=== PATIENT | male | born 1950 | race Caucasian/White ===

== ENCOUNTER 2019-10-02 07:46 | Outpatient (RCR) | payer MEDICARE, SELFPAY ==
--- NOTE | 2019-10-02 08:35 | PTOPEVAL ---
Thank you for referring this patient to [facility]. Please review, sign, date and return this plan of care RIVERA. I agree with and certify that the following plan of care is medically necessary. Referring Physician Date Admitting Provider: Attending Provider: PHYSICIAN NOT ON STAFF Referring Provider: *PT Outpatient Evaluation Start: 10/02/19 08:17 Freq: Status: Active Protocol: Document 10/02/19 08:17 MOLLY (Rec: 10/02/19 08:35 MOLLY [id number]) Therapy Assessment Status Assessment Status Assessment Status Evaluation Evaluation Information Problem Diagnosis right reverse TSA Onset 09/13/19 Subjective Information Pt. underwent revererse TSA on Query Text:As Reported By Patient/ 09/13/19. He states that he Family was utilizing a sling, but was told to discontinue. He was using the arm for light activities around the home. He has been informed to avoid reaching behind his back. 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 He reports that his goal is to regain strength and mobiltiy in the right arm . Prior Level of Function Activity Level (Last 3 Months) Hand Dominance Right Activity of Daily Living Ability Independent Indoor/Home Mobility Independent Community Mobility Independent Stairs Ability Independent Functional Cognition (Planning, Shopping Independent , Taking Medications) Cooking Yes Cleaning No Laundry No Shopping Yes Driving No Pain Assessment Timing of Pain Assessment Timing of Pain Assessment Pre-Treatment Pain Scale Pain Scale Used Numeric (1 - 10) Self Report Pain Assessment Right Shoulder(s) Reported Pain Level 8 Current Pain Intensity 8 Greatest Pain Intensity 9 Pain Score Pain Score 8: Self Report Upper Extremity Range of Motion General Upper Extremity Range of Motion Gross Upper Extremity Range of Motion PROM at the right shoulder: Comments flexion: 120 degrees ER at 0 degrees abduction: 60 degrees IR: not assessed PT Clinical Summary Clinical Summary Protocol: PTEVCODE Clinical Summary Pt. enters the clinci
--- NOTE | 2019-10-02 09:00 | PTOPEVAL ---
Thank you for referring this patient to [facility]– [place]. Please review, sign, date and return this plan of care RIVERA. I agree with and certify that the following plan of care is medically necessary. Referring Physician Date Admitting Provider: Attending Provider: PHYSICIAN NOT ON STAFF Referring Provider: *PT Outpatient Evaluation Start: 10/02/19 08:17 Freq: Status: Active Protocol: Document 10/02/19 08:17 MOLLY (Rec: 10/02/19 08:35 MOLLY [email or web address]) Therapy Assessment Status Assessment Status Assessment Status Evaluation Evaluation Information Problem Diagnosis right reverse TSA Onset 09/13/19 Subjective Information Pt. underwent revererse TSA on Query Text:As Reported By Patient/ 09/13/19. He states that he Family was utilizing a sling, but was told to discontinue. He was using the arm for light activities around the home. He has been informed to avoid reaching behind his back. 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 He reports that his goal is to regain strength and mobiltiy in the right arm . Prior Level of Function Activity Level (Last 3 Months) Hand Dominance Right Activity of Daily Living Ability Independent Indoor/Home Mobility Independent Community Mobility Independent Stairs Ability Independent Functional Cognition (Planning, Shopping Independent , Taking Medications) Cooking Yes Cleaning No Laundry No Shopping Yes Driving No Pain Assessment Timing of Pain Assessment Timing of Pain Assessment Pre-Treatment Pain Scale Pain Scale Used Numeric (1 - 10) Self Report Pain Assessment Right Shoulder(s) Reported Pain Level 8 Current Pain Intensity 8 Greatest Pain Intensity 9 Pain Score Pain Score 8: Self Report Upper Extremity Range of Motion General Upper Extremity Range of Motion Gross Upper Extremity Range of Motion PROM at the right shoulder: Comments flexion: 120 degrees ER at 0 degrees abduction: 30 degrees IR: not assessed PT Clinical Summary Clinical Summary Protocol: PTEVCODE Clinical Summary Pt. enters the clinci
--- NOTE | 2019-11-08 10:08 | PTOPEVAL ---
Thank you for referring this patient to [facility]. Please review, sign, date and return this plan of care RIVERA. I agree with and certify that the following plan of care is medically necessary. Referring Physician Date Admitting Provider: Attending Provider: PHYSICIAN NOT ON STAFF Referring Provider: *PT Outpatient Evaluation Start: 10/02/19 08:17 Freq: Status: Active Protocol: Document 11/08/19 09:00 MOLLY (Rec: 11/08/19 10:07 MOLLY [email or web address]) Therapy Assessment Status Assessment Status Assessment Status Re-evaluation Evaluation Information Problem Subjective Information Pt. reports that he has Query Text:As Reported By Patient/ discontinued use of pain Family medication. He reports that he is improving but overhead strength is still limited. He reports that he has trouble lifting objects overhead. He reports that his goal remains to further improve his strength. Pain Assessment Pain Scale Pain Scale Used Numeric (1 - 10) Self Report Pain Assessment Right Shoulder(s) Reported Pain Level 2 Pain Score Pain Score 2: Self Report Upper Extremity Range of Motion General Upper Extremity Range of Motion Gross Upper Extremity Range of Motion right shoulder flexion AROM Comments against gravity 128 degrees, right shoudler ER AROM against gravity 79 degrees Upper Extremity Muscle Strength Testing General Upper Extremity Strength Gross Upper Extremity Strength Comments right shoulder flexion 3+/5, right shoulder ER 3/5, right shoulder IR 4/5 PT Clinical Summary Clinical Summary Protocol: PTEVCODE Clinical Summary Pt. continues to demonstrate gradual progress in regards to strength and ROM. He demonstrates improved movement against gravity. He continues to progress toward goals regarding strength and mobility. Recommend continued treatment at a decreased frequency focusing on improving remaining strength deficits. PT Services Indicated Yes Rehabilitation Potential Excellent Potential Barriers to Goal Achievements None Support Requirements For Optimal None [place] Patient/Caregiver
== END 2019-12-04 10:59 | disposition home or self-care (01) ==
LOC: CHSPT 07:46
DX: Z09 Encounter for follow-up examination after completed treatment for conditions other than malignant neoplasm (principal); S46.011S Strain of muscle(s) and tendon(s) of the rotator cuff of right shoulder, sequela
CPT/HCPCS: 97014; 97110; 97140; 97161; G0283

== ENCOUNTER 2019-12-05 14:01 | Emergency (ER) | payer MEDICARE, SELFPAY ==
[2019-12-05 14:18] VITALS: BP 171/100; PULSE 125; RESP 20; TEMP 36.8; O2SAT 99
[2019-12-05] MEDS: LIDO 1%/EPINEPHRINE 1:100,000 20 ML VIAL (14:25)
--- NOTE | 2019-12-05 15:06 | ED.WOUNDLAC ---
HPI - Wound/Laceration General Chief Complaint: Wound/Laceration Stated Complaint: cut lower part of left arm Source: patient Mode of arrival: ambulatory Limitations: no limitations History of Present Illness HPI narrative: 69 y.o. lacerated his left forearm 90 minutes ago after getting it caught on the throttle of his tiller. Last tetanus 4 years ago. Denies chronic illnesses. Drinks several drinks every evening for years. Pain is mild. Denies hx of hypertension Place: outdoors and other Context: accidental Associated symptoms: none Related Data Home Medications Medication Instructions Recorded Confirmed No Home Medications 12/05/19 12/05/19 Allergies Allergy/AdvReac Type Severity Reaction Status Date / Time No Known Allergies Allergy Verified 12/05/19 14:17 Review of Systems Constitutional: Constitutional: Reports no additional constitutional complaints Musculoskeletal: Comments: no left hand/wrist weakness Neurologic: Comments: no left hand/forearm numbness PMFSH Social History Social History (Updated 12/05/19 @ 15:16 by Twan Meza MD) Smoking status: Current every day smoker Exam Narrative: Exam Narrative: 171/100 Const: General: no acute distress Orientation/consciousness: patient oriented x3 Other: Interactive Skin: Wounds: wounds noted Other: 8 cm v shaped laceration left mid-forearm. Laceration does not extend beyond the skin. Underlying blood vessels and epimysium are intact. Neuro: General: moves all extremities Course Vital Signs Vital signs: Vital Signs Temperature 36.8 C 12/05/19 14:18 Pulse Rate 125 H 12/05/19 14:18 Respiratory Rate 20 12/05/19 14:18 Blood Pressure 171/100 H 12/05/19 14:18 Pulse Oximetry 99 12/05/19 14:18 Temperature 36.8 C 12/05/19 14:18 Pulse Rate 125 H 12/05/19 14:18 Respiratory Rate 20 12/05/19 14:18 Blood Pressure 171/100 H 12/05/19 14:18 Pulse Oximetry 99 12/05/19 14:18 Procedures Laceration Laceration 1: Date: 12/05/19 Time: 15:18 Site: upper extremity Side (If applicable): left Size (cm): 8 Description: flap Depth: simple, single layer Local Anesthetic: lidocaine 1% and with epi Amount of anesthesia used (mL): 4 Pre-repair: wound explored and irrigated (50 ml through 21 g needle.) ====== Skin Level ====== Skin layer closed with: nylon Size (cm): 4-0 Number of sutures: 10 Technique: simple, interrupted and running ====== Subcutaneous Layer ====== ====== Muscle Layer ====== ====== Tendon Layer ====== Dressing: non-adherent dressing, gauze wrap MDM - Wound/Laceration Differential Diagnosis Differential diagnosis: Likely laceration and other (lac with foreign body) Discharge Plan Discharge Clinical Impression: Laceration, Blood pressure elevated without history of HTN Patient Disposition: Home, Self-Care Condition: Stable Instructions: Antibiotic Form, Care For Your Stitches (ED), Hypertension (ED) Additional Instructions: Suture removal in 7 days. Wound care reviewed. Follow up for blood pressure monitoring. Prescriptions: No Action No Home Medications RF: 0 Follow-up/Referrals: Otto Salvador MD [Primary Care Provider] - Time of Disposition: 15:07 Discharge Date/Time: 12/05/19 15:20
[2019-12-05 15:15] VITALS: BP 146/89; PULSE 77; RESP 14; O2SAT 99
== END 2019-12-05 15:20 | disposition home or self-care (01) ==
PROVIDERS: Emergency Provider Family Medicine; PCP Internal Medicine
DX: S51.812A Laceration without foreign body of left forearm, initial encounter (principal); R03.0 Elevated blood-pressure reading, without diagnosis of hypertension; F17.200 Nicotine dependence, unspecified, uncomplicated; W45.8XXA Other foreign body or object entering through skin, initial encounter
CPT/HCPCS: 12004; 99282

== ENCOUNTER 2019-12-06 10:50 | Outpatient (RCR) | payer MEDICARE, SELFPAY ==
[2019-12-06 11:48] LABS: Prostate Specific Antigen 0.3 ng/mL (< OR = 4.0)
== END 2020-03-05 23:59 | disposition home or self-care (01) ==
LOC: CHSLAB 10:50
PROVIDERS: PCP Internal Medicine; Visit Provider Internal Medicine
DX: C61 Malignant neoplasm of prostate (principal)
CPT/HCPCS: 36415; 84153

== ENCOUNTER 2021-07-16 16:01 | Outpatient (CLI) | payer MEDICARE, SELFPAY ==
[2021-07-16 16:54] LABS: SARS-CoV-2 RNA PCR Negative (Negative)
[2021-07-16 17:00] LABS: Influenza A QL RT-PCR Negative (Negative); Influenza B QL RT-PCR Negative (Negative)
== END 2021-07-16 16:02 | disposition home or self-care (01) ==
LOC: CHSLAB 16:03
PROVIDERS: PCP Internal Medicine; Visit Provider Internal Medicine
DX: J06.9 Acute upper respiratory infection, unspecified (principal); Z20.822 Contact with and (suspected) exposure to COVID-19
CPT/HCPCS: 87502; C9803; U0003; U0005

== ENCOUNTER 2022-06-20 03:51 | Emergency (ER) | payer MEDICARE, SELFPAY ==
--- NOTE | ~2022-06-20 | CT_ITS ---
EXAMINATION: CT facial bones wo con DATE: 06/20/2022 05:17 INDICATION: Bilateral epistaxis TECHNIQUE: Computed tomography (CT) of the facial bones and maxillofacial region was performed withou t intravenous contrast. The dose-length product (DLP) was 287.87 mGy-cm. Automated exposure control a nd iterative reconstruction technique were employed. COMPARISON: None. FINDINGS: There are diffuse hemorrhagic opacification of the paranasal sinuses. The visualized osseou s structures are normal. No mass is identified. There is no facial fracture. The orbits and globes ar e normal. IMPRESSION: 1. Hemorrhagic sinus opacification, consistent with history of hypostatic axis, without acute facial fracture identified. Reviewed, dictated and finalized at location A.
--- NOTE | ~2022-06-20 | CT_ITS ---
EXAMINATION: CT brain wo con INDICATION: Epistaxis COMPARISON: None TECHNIQUE: Standard unenhanced head CT. The dose-length product (DLP) was 681.00 mGy-cm. The mA was a djusted according to patient size. Iterative reconstruction technique was employed. FINDINGS: There is no acute intraparenchymal hemorrhage. No evidence of mass lesion. No evidence of a cute infarction. There is mild periventricular and subcortical hypodensity probably related to small vessel ischemic disease. There is mild prominence of the sulci and ventricles related to cerebral atr ophy. Intracranial calcified cerebral atherosclerosis is noted. There are no extra-axial collections. There is no mass effect or midline shift. The orbits and soft tissues are unremarkable. There is hem orrhagic opacification in the right maxillary sinus. The nasal cavity is nearly completely opacified. There are air-fluid levels in the sphenoid sinuses, left maxillary sinus and frontal sinuses. IMPRESSION: 1. No acute intracranial abnormality. 2. Age related findings. 3. Hemorrhagic sinus opacification, consistent with history of epistaxis. Reviewed, dictated and finalized at location A.
[2022-06-20 03:58] VITALS: BP 157/87; PULSE 80; RESP 20; TEMP 36.6; O2SAT 95
[2022-06-20 04:36] LABS: Hematocrit 38.6 % (37.0-46.0); Hemoglobin 12.9 g/dL (12.4-15.3)
[2022-06-20 04:49] LABS: INR 0.9; Partial Thromboplastin Time 26.9 SEC (23.90-30.70); Prothrombin Time 10.4 Seconds (9.50-12.10)
[2022-06-20] MEDS: LACTATED RINGERS 1,000 ML 999 ML IV CONT (04:50)
--- NOTE | 2022-06-20 05:07 | ED.EPISTAXIS ---
HPI - Epistaxis General Chief complaint: Epistaxis Stated complaint: Nose bleed Time Seen by Provider: 06/20/22 03:55 Source: patient and RN notes reviewed Mode of arrival: ambulatory Limitations: no limitations History of Present Illness complaint: epistaxis Location: bilateral nostril Onset (ago): hour(s) (36) Duration: constant Associated symptoms: headache and sinus pain Treatment prior to arrival: nose pinching and stuffed nose with tissue Related Data Allergies Allergy/AdvReac Type Severity Reaction Status Date / Time No Known Allergies Allergy Verified 01/02/20 07:04 Review of Systems Review of Systems: All systems reviewed & are unremarkable except as noted in HPI and below Constitutional: Constitutional: Reports no additional constitutional complaints Eyes: Eyes: Reports no additional eye complaints ENT: Reports system reviewed and no additional complaints, except as documented and Reports epistaxis Cardiovascular: Cardiovascular: Reports no additional cardiovascular complaints Respiratory: Respiratory: Reports no additional respiratory complaints Gastrointestinal: Gastrointestinal: Reports no additional gastrointestinal complaints Musculoskeletal: Musculoskeletal: Reports no additional musculoskeletal complaints Integumentary/Breasts: Skin/Breast: Reports system reviewed and no additional complaints, except as docu Neurologic: Reports system reviewed and no additional complaints, except as documented Psychiatric: Psychiatric: Reports no additional psychiatric complaints Endocrine: Endocrine: Reports no additional endocrine complaints Hematologic/Lymphatic: Hematologic/Lymphatic: Reports no additional hematologic/lymphatic complaints Allergic/Immunologic: Allergic/Immunologic: Reports no additional allergic/immunologic complaints PMFSH Past Medical History Medical History Epistaxis Social History Social History Smoking status: Current every day smoker Exam Const: General: healthy appearing, no acute distress and well nourished Nutritional Appearance: well nourished Orientation/consciousness: patient oriented x3 Limitations: no limitations HENMT: Head: normal to inspection Ears: external ears normal, TM's normal bilaterally and EAC's normal Face/Nose/Sinus: Normal external nose present, Normal nares present, normal facial exam and sinuses nontender Face and sinus: normal facial exam and sinuses nontender Mouth: Yes Normal oral and palatal mucosa present and Yes moist mucous membranes Teeth and gingiva: dentition normal Throat: posterior oropharynx normal Other: bilateral epistaxis + blood oozing into oropharynx + bilateral earache. minimal left tear duct bleeding (post nasal packing) Eyes: Conjunctivae: conjunctivae normal Pupils: Equal, round and reactive pupils present EOM: EOMs intact bilaterally Neck: Neck: normal visual inspection, no lymphadenopathy and no meningeal signs Chest: Chest palpation & inspection: normal inspection of the chest Resp: Effort & Inspection: normal respiratory effort Auscultation: clear to auscultation bilaterally Cardio: Rate: regular rate Rhythm: regular rhythm GI: GI Palp: Yes Soft to palpation and No Tenderness to palpation present (GI) Auscultation: normal bowel sounds : General: Yes bladder normal to palpation and Yes no CVA tenderness Back/Spine/Pelvis: Back: no CVA tenderness Skin: General skin exam: normal color Rashes: no rashes Wounds: no wounds Neuro: General: patient oriented x3, moves all extremities, no meningeal signs, no focal motor deficits and CN's II-XI intact bilaterally Cranial nerves: Yes Equal, round and reactive pupils present and Yes Nystagmus not present Speech: normal speech Gait exam (Neuro): Normal gait present Extrem: General: normal to inspection and no pedal edema Psych: Mental Stat
[2022-06-20] MEDS: ONDANSETRON HCL ODT 4 MG TABLET PO (05:15)
[2022-06-20 05:56] VITALS: BP 140/90; PULSE 78; RESP 18; TEMP 36.6; O2SAT 95
[2022-06-20] MEDS: MORPHINE SULFATE (*CRX) 4 MG/ML INJ IM (05:58)
[2022-06-20] MEDS: cefTRIAXone 1 GM, LIDOCAINE HCL 1% LOCAL INJ 2.1 ML IM (06:14)
== END 2022-06-20 06:15 | disposition home or self-care (01) ==
PROVIDERS: Emergency Provider Emergency Medicine; PCP Internal Medicine
DX: R04.0 Epistaxis (principal); J01.90 Acute sinusitis, unspecified; F17.200 Nicotine dependence, unspecified, uncomplicated
CPT/HCPCS: 36415; 70450; 70486; 85014; 85018; 85610; 85730; 96360; 96372; 99284; A9270; J0696; J2270; J7120

== ENCOUNTER 2022-06-20 20:50 | Emergency (ER) | payer MEDICARE, SELFPAY ==
[2022-06-20] VITALS (21 sets, daily range): BP systolic 130–173; BP diastolic 81–114; PULSE 70–113; RESP 18–22; TEMP 36.5–36.6; O2SAT 94–99
--- NOTE | 2022-06-20 21:23 | PC.NURSE ---
Bilat epistats removed by ERP, Replaced epistat to Rt nostril, bleeding continues, pt c/o blood down back of his throat, bleeding still noted around epistat that is replaced. VSS at this time.
--- NOTE | 2022-06-20 21:35 | ED.GENADULT ---
HPI - General Adult General Chief complaint: Epistaxis Stated complaint: nosebleed;coughing up blood Time Seen by Provider: 06/20/22 20:57 History of Present Illness HPI narrative: The patient is a 72-year-old male who had epistaxis at 4 am this morning. He was seen here in the emergency room and underwent bilateral anterior nasal packing with balloons. His blood pressure at that time was a bit elevated, 157/87. He is not on antiplatelet or anticoagulant therapies. He has not had episodes of epistaxis previously. He was prescribed Amoxicillin, Mucinex, Tramadol, and Tylenol. He was discharged home with follow-up. He now returns to the emergency room this evening due to a recurrent period of epistaxis that started around 8 pm. He does have blood in the tears of his left eye (hemolacria). He feels the bleeding in the right nares has re-started again. No trauma or blowing of his nose since this morning. Related Data Allergies Allergy/AdvReac Type Severity Reaction Status Date / Time No Known Allergies Allergy Verified 01/02/20 07:04 Review of Systems Review of Systems: All systems reviewed & are unremarkable except as noted in HPI and below Constitutional: Constitutional: Reports no additional constitutional complaints, Denies anorexia, Denies body ache(s), Denies chills, Denies excessive sweating, Denies fatigue, Denies fever(s), Denies frequent falls, Denies headache(s), Denies malaise and Denies poor appetite Eyes: Eyes: Reports no additional eye complaints, Denies blurry vision, Denies change in vision (blood in left eye tears, as noted above.), Denies irritation, Denies itchy eyes and Denies photophobia ENT: Reports system reviewed and no additional complaints, except as documented, Reports Normal hearing present, Denies change in voice, Denies dysphagia, Denies vertigo, Denies dizziness, Denies ear discharge, Denies headache(s), Denies hearing loss, Denies hoarseness, Reports epistaxis, Denies nasal congestion, Denies neck pain, Denies sinus pressure, Denies sore throat and Denies throat swelling Cardiovascular: Cardiovascular: Reports no additional cardiovascular complaints, Denies chest pain, Denies syncope, Denies rapid heart rate, Denies irregular heart rhythm, Denies leg edema, Denies dyspnea and Denies slow heart rate Respiratory: Respiratory: Reports no additional respiratory complaints, Denies cough, Denies dyspnea, Denies stridor and Denies wheezing Gastrointestinal: Gastrointestinal: Reports no additional gastrointestinal complaints, Denies abdominal pain, Denies melena, Denies hematochezia, Denies dysphagia, Denies diarrhea, Denies nausea and Denies vomiting Genitourinary: Genitourinary: Denies hematuria, Denies oliguria, Denies dysuria, Denies flank pain, Denies urinary frequency and Denies urinary urgency Musculoskeletal: Musculoskeletal: Reports no additional musculoskeletal complaints, Denies abnormal gait, Denies back pain, Denies myalgias, Denies arthralgias, Denies joint swelling, Denies limited range of motion, Denies muscle cramps, Denies muscle weakness, Denies neck pain and Denies numbness Integumentary/Breasts: Skin/Breast: Reports system reviewed and no additional complaints, except as docu, Denies breast pain, Denies change in pigmentation, Denies pruritus, Denies erythema and Denies wounds Neurologic: Reports system reviewed and no additional complaints, except as documented, Reports Normal hearing present, Denies Abnormal speech present, Denies abnormal gait, Denies confusion, Denies vertigo, Denies dizziness, Denies syncope, Denies frequent falls, Denies headache(s), Denies focal weakness, Denies numbness and Denies paresthesias Psychiatric: Psychiatric: Reports no additional psychiatric complaints and Denies confusion Endocrine: Endocrine: Reports no additional endocrine complaints, Denies cold intolerance, Denies excessive sweating, Denies fatigue and Denies heat intolerance Hematologic/Lymphatic: Hematologi
[2022-06-20] MEDS: LABETALOL HCL INJ 100 MG/20 ML VIAL 20 MG IV PUSH (21:37)
[2022-06-20] MEDS: hydrALAZINE HCL 20 MG/ML VIAL IV PUSH (22:06)
[2022-06-20 22:16] LABS: Basophils Absolute Auto 0.01 K/mm3 (0.00-0.10); Basophils Percent Auto 0.1 % (0.0-1.0); Hematocrit 30.1 % (37.0-46.0); Hemoglobin 10.3 g/dL (12.4-15.3); Immature Granulocyte Absolute 0.03 K/mm3 (0.00-0.00); Immature Granulocyte Percent A 0.4 % (0.0-0.0); Lymphocytes Absolute Auto 0.65 K/mm3 (1.10-4.50); Lymphocytes Percent Auto 9.7 % (18.0-42.0); Mean Corpuscular HGB Conc 34.2 g/dL (32.0-36.0); Mean Corpuscular Hemoglobin 34.1 pg (27.0-31.0); Mean Corpuscular Volume 99.7 fL (78.0-102.0); Mean Platelet Volume 8.9 fl (8.7-11.0); Monocytes Absolute Auto 0.43 K/mm3 (0.10-0.90); Monocytes Percent Auto 6.4 % (2.0-11.0); Neutrophils Absolute Auto 5.6 K/mm3 (1.7-7.2); Neutrophils Percent Auto 83.4 % (50.0-70.0); Platelet Count Result 188 K/mm3 (150-420); Red Blood Count 3.02 M/mm3 (4.70-6.10); Red Cell Distribution Width 12.6 % (11.6-14.4); White Blood Count 6.7 K/mm3 (4.8-10.8)
--- NOTE | 2022-06-20 22:17 | PC.NURSE ---
Pt continues to have bleeding down back of throat and gagging c bloody phlegm production. Awaiting call back from [facility] for ENT transfer.
[2022-06-20 22:30] LABS: Prothrombin Time 10.9 Seconds (9.50-12.10)
[2022-06-20 22:31] LABS: Alanine Aminotransferase 18 U/L (16-63); Alkaline Phosphatase 38 U/L (46-116); Anion Gap 7 mmol/L (8-16); Aspartate Amino Transferase 20 U/L (15-37); Bilirubin,Total 0.4 mg/dL (0.00-1.00); Blood Urea Nitrogen 37 mg/dL (7-18); Calcium 7.8 mg/dL (8.5-10.1); Carbon Dioxide 29 mmol/L (21-32); Chloride 99 mmol/L (98-108); Estimated CRCL calculation 68 ml/min; Estimated Glomerular Filt Rate > 60; Glucose 171 mg/dL (70-99); Osmolality Calculated 292 mOsm/kg (285-295); Potassium 3.8 mmol/L (3.5-5.1); Sodium 135 mmol/L (136-145)
[2022-06-20] MEDS: SODIUM CHLORIDE 0.9% IV 1,000 ML 999 ML IV CONT (22:50)
[2022-06-20 23:31] LABS: SARS-CoV-2 RNA PCR Negative (Negative)
[2022-06-20] MEDS: SODIUM CHLORIDE 0.9% IV 1,000 ML 125 ML IV CONT (23:50)
--- NOTE | 2022-06-21 00:09 | PC.NURSE ---
Pt loaded to GBAAS cot and report given, VSS.
== END 2022-06-21 00:10 | disposition short-term general hospital (02) ==
PROVIDERS: Emergency Provider Emergency Medicine; PCP Internal Medicine
DX: R04.0 Epistaxis (principal); I16.9 Hypertensive crisis, unspecified; E86.0 Dehydration; Z20.822 Contact with and (suspected) exposure to COVID-19
CPT/HCPCS: 36415; 70450; 70486; 80053; 85014; 85018; 85025; 85610; 85730; 96360; 96361; 96372; 96374; 96375; 99284; 99285; A9270; C9803; J0360; J0696; J2270; J7030; J7120; U0003; U0005

== ENCOUNTER 2022-07-09 10:58 | Outpatient (CLI) | payer MEDICARE, SELFPAY ==
[2022-07-09 11:19] LABS: Basophils Absolute Auto 0.04 K/mm3 (0.00-0.10); Basophils Percent Auto 0.9 % (0.0-1.0); Eosinophils Absolute Auto 0.03 K/mm3 (0.02-0.50); Eosinophils Percent Auto 0.7 % (1.0-6.0); Hematocrit 31.4 % (37.0-46.0); Hemoglobin 10.1 g/dL (12.4-15.3); Immature Granulocyte Absolute 0.02 K/mm3 (0.00-0.00); Immature Granulocyte Percent A 0.4 % (0.0-0.0); Lymphocytes Absolute Auto 1.64 K/mm3 (1.10-4.50); Lymphocytes Percent Auto 35.9 % (18.0-42.0); Mean Corpuscular HGB Conc 32.2 g/dL (32.0-36.0); Mean Corpuscular Hemoglobin 32.7 pg (27.0-31.0); Mean Corpuscular Volume 101.6 fL (78.0-102.0); Mean Platelet Volume 8.2 fl (8.7-11.0); Monocytes Percent Auto 8.8 % (2.0-11.0); Neutrophils Absolute Auto 2.4 K/mm3 (1.7-7.2); Neutrophils Percent Auto 53.3 % (50.0-70.0); Platelet Count Result 392 K/mm3 (150-420); Red Blood Count 3.09 M/mm3 (4.70-6.10); Red Cell Distribution Width 13.1 % (11.6-14.4); White Blood Count 4.6 K/mm3 (4.8-10.8)
[2022-07-09 12:28] LABS: Alanine Aminotransferase 23 U/L (16-63); Albumin Level 3.1 g/dL (3.4-5.0); Alkaline Phosphatase 57 U/L (46-116); Anion Gap 6 mmol/L (8-16); Aspartate Amino Transferase 14 U/L (15-37); Bilirubin,Total 0.2 mg/dL (0.00-1.00); Blood Urea Nitrogen 11 mg/dL (7-18); Calcium 8.3 mg/dL (8.5-10.1); Carbon Dioxide 31 mmol/L (21-32); Chloride 105 mmol/L (98-108); Estimated Glomerular Filt Rate > 60; Glucose 143 mg/dL (70-99); Osmolality Calculated 295 mOsm/kg (285-295); Potassium 5.2 mmol/L (3.5-5.1); Sodium 142 mmol/L (136-145); Total Protein 6.2 g/dL (6.4-8.2)
[2022-07-09 14:55] LABS: Hemoglobin A1C 5.6 % (<5.7)
== END 2022-07-09 10:59 | disposition home or self-care (01) ==
LOC: CHSLAB 11:04
PROVIDERS: PCP Internal Medicine; Visit Provider Internal Medicine
DX: D64.9 Anemia, unspecified (principal); R73.9 Hyperglycemia, unspecified
CPT/HCPCS: 36415; 80053; 83036; 85025

== ENCOUNTER 2023-01-21 15:22 | Outpatient (CLI) | payer MEDICARE, SELFPAY ==
[2023-01-21 15:38] LABS: Basophils Absolute Auto 0.03 K/mm3 (0.00-0.10); Basophils Percent Auto 0.5 % (0.0-1.0); Hematocrit 38.3 % (37.0-46.0); Hemoglobin 13.2 g/dL (12.4-15.3); Immature Granulocyte Absolute 0.01 K/mm3 (0.00-0.00); Immature Granulocyte Percent A 0.2 % (0.0-0.0); Lymphocytes Absolute Auto 1.21 K/mm3 (1.10-4.50); Lymphocytes Percent Auto 20.7 % (18.0-42.0); Mean Corpuscular HGB Conc 34.5 g/dL (32.0-36.0); Mean Corpuscular Hemoglobin 33.2 pg (27.0-31.0); Mean Corpuscular Volume 96.2 fL (78.0-102.0); Mean Platelet Volume 8.6 fl (8.7-11.0); Monocytes Absolute Auto 0.57 K/mm3 (0.10-0.90); Monocytes Percent Auto 9.8 % (2.0-11.0); Neutrophils Percent Auto 68.8 % (50.0-70.0); Platelet Count Result 254 K/mm3 (150-420); Red Blood Count 3.98 M/mm3 (4.70-6.10); Red Cell Distribution Width 13.5 % (11.6-14.4); White Blood Count 5.8 K/mm3 (4.8-10.8)
[2023-01-21 16:11] LABS: Alanine Aminotransferase 28 U/L (16-63); Albumin Level 3.5 g/dL (3.4-5.0); Alkaline Phosphatase 59 U/L (46-116); Anion Gap 7 mmol/L (8-16); Aspartate Amino Transferase 36 U/L (15-37); Bilirubin,Total 0.4 mg/dL (0.00-1.00); Blood Urea Nitrogen 14 mg/dL (7-18); Calcium 8.6 mg/dL (8.5-10.1); Carbon Dioxide 30 mmol/L (21-32); Chloride 104 mmol/L (98-108); Estimated Glomerular Filt Rate > 60; Glucose 104 mg/dL (70-99); Osmolality Calculated 292 mOsm/kg (285-295); Potassium 4.4 mmol/L (3.5-5.1); Sodium 141 mmol/L (136-145); Total Protein 6.7 g/dL (6.4-8.2)
== END 2023-01-21 15:23 | disposition home or self-care (01) ==
LOC: CHSLAB 15:25
PROVIDERS: PCP Internal Medicine; Visit Provider Internal Medicine
DX: L03.90 Cellulitis, unspecified (principal); D64.9 Anemia, unspecified
CPT/HCPCS: 36415; 80053; 85025

== ENCOUNTER 2023-03-20 18:02 | Emergency (ER) | payer MEDICARE, SELFPAY ==
[2023-03-20 18:03] VITALS: BP 145/74; PULSE 75; RESP 20; TEMP 37; O2SAT 98
[2023-03-20] MEDS: LIDOCAINE, EPINEPHRINE, TETRACAINE VISCOUS SOLN 3 ML TOPICAL (18:26)
[2023-03-20] MEDS: LIDOCAINE HCL 2% PF INJ 5 ML VIAL 10 ML INFILTRATE (18:26)
[2023-03-20] MEDS: NEOMYCIN/POLYMYXIN/BACITRACIN OINTMENT PACKET 1 PACKET TOPICAL (18:28)
[2023-03-20 18:52] VITALS: BP 158/79; PULSE 78; RESP 20; TEMP 37.1; O2SAT 98
--- NOTE | 2023-03-20 18:56 | ED.WOUNDLAC ---
HPI - Wound/Laceration General Chief Complaint: Wound/Laceration Stated Complaint: L HAND LACERATION Time Seen by Provider: 03/20/23 18:06 Source: patient Mode of arrival: ambulatory Limitations: no limitations History of Present Illness HPI narrative: 72-year-old male presents for left palm laceration. Said that he was changing the tire in his car and the tire blew, cutting him in the left palm. Onset (ago): hour(s) Location: other (left palm acute) Extremity Location: Left: hand Place: home Patient tetanus UTD: Yes Context: accidental Associated symptoms: pain Related Data Allergies Allergy/AdvReac Type Severity Reaction Status Date / Time No Known Allergies Allergy Verified 01/02/20 07:04 Review of Systems Constitutional: Constitutional: Reports as per HPI and Reports no additional constitutional complaints Eyes: Eyes: Reports as per HPI and Reports no additional eye complaints ENT: Reports system reviewed and no additional complaints, except as documented and Reports as per HPI Cardiovascular: Cardiovascular: Reports as per HPI and Reports no additional cardiovascular complaints Respiratory: Respiratory: Reports as per HPI and Reports no additional respiratory complaints Gastrointestinal: Gastrointestinal: Reports as per HPI and Reports no additional gastrointestinal complaints Genitourinary: Genitourinary: Reports as per HPI Musculoskeletal: Musculoskeletal: Reports no additional musculoskeletal complaints and Reports as per HPI Integumentary/Breasts: Skin/Breast: Reports system reviewed and no additional complaints, except as docu and Reports as per HPI Neurologic: Reports system reviewed and no additional complaints, except as documented and Reports as per HPI Psychiatric: Psychiatric: Reports no additional psychiatric complaints and Reports as per HPI Endocrine: Endocrine: Reports no additional endocrine complaints and Reports as per HPI Hematologic/Lymphatic: Hematologic/Lymphatic: Reports no additional hematologic/lymphatic complaints and Reports as per HPI Allergic/Immunologic: Allergic/Immunologic: Reports no additional allergic/immunologic complaints and Reports as per HPI PMFSH Past Medical History Medical History Epistaxis Social History Social History Smoking status: Current every day smoker Exam Const: General: healthy appearing, no acute distress and alert Nutritional Appearance: well nourished and thin Orientation/consciousness: patient oriented x3 Limitations: no limitations HENMT: Head: normal to inspection Face/Nose/Sinus: Normal external nose present Face and sinus: normal facial exam Eyes: Conjunctivae: conjunctivae normal EOM: EOMs intact bilaterally Resp: Effort & Inspection: normal respiratory effort Auscultation: clear to auscultation bilaterally Cardio: Rate: regular rate Rhythm: regular rhythm GI: GI Palp: Yes Soft to palpation Auscultation: normal bowel sounds Skin: General skin exam: normal color Rashes: no rashes Wounds: wounds noted (7 cm laceration in a semilunar shape in the left palm) Neuro: General: patient oriented x3 Cranial nerves: Yes Nystagmus not present Speech: normal speech Gait exam (Neuro): Normal gait present Extrem: General: normal to inspection and no clubbing, cyanosis or edema Psych: Mental Status: mental status grossly normal Affect: normal affect Attitude: cooperative Course Vital Signs Vital signs: Vital Signs Temperature 98.6 F 03/20/23 18:03 Pulse Rate 75 03/20/23 18:03 Respiratory Rate 20 03/20/23 18:03 Blood Pressure 145/74 H 03/20/23 18:03 Pulse Oximetry 98 03/20/23 18:03 Oxygen Delivery Room Air 03/20/23 18:03 Temperature 98.7 F 03/20/23 18:52 Pulse Rate 78 03/20/23 18:52 Respiratory Rate 20 03/20/23 18:52 Blood Pressure 158/79 H 03/20/23 18:52 Pulse Oximetry
== END 2023-03-20 18:57 | disposition home or self-care (01) ==
PROVIDERS: Emergency Provider Emergency Medicine; PCP Internal Medicine
DX: S61.412A Laceration without foreign body of left hand, initial encounter (principal); F17.200 Nicotine dependence, unspecified, uncomplicated; W45.8XXA Other foreign body or object entering through skin, initial encounter; Y92.009 Unspecified place in unspecified non-institutional (private) residence as the place of occurrence of the external cause
CPT/HCPCS: 12002; 99283

== ENCOUNTER 2023-07-26 12:42 | Outpatient (CLI) | payer MEDICARE, SELFPAY ==
--- NOTE | 2023-07-26 13:00 | ECG_ITS ---
Measurements Intervals [place] Rate: 82 P: 49 DC: 149 QRS: 72 QRSD: 86 T: 63 QT: 349 QTc: 408 Interpretive Statements SINUS RHYTHM VOLTAGE CRITERIA FOR LVH BASELINE ARTIFACT- I, II, III, AVR, AVL, AVF, V1-V6 BORDERLINE ECG NO PREVIOUS ECG AVAILABLE FOR COMPARISON Electronically Signed On 07-26-2023 13:12:34 CORK INSULATOR HELPER by Goyo Smith D.O.
== END 2023-07-26 12:43 | disposition home or self-care (01) ==
LOC: ANHSURGERY 12:51
PROVIDERS: PCP Internal Medicine; Visit Provider Surgery
DX: Z01.818 Encounter for other preprocedural examination (principal); K40.91 Unilateral inguinal hernia, without obstruction or gangrene, recurrent; Z72.0 Tobacco use
CPT/HCPCS: 36415; 86850; 86900; 86901; 93005

== ENCOUNTER 2023-07-28 01:28 | Day surgery (SDC) | payer MEDICARE, SELFPAY ==
[2023-07-26 08:15] VITALS: BMI 19.3
--- NOTE | 2023-07-26 08:18 | PC.NURSE ---
Report to the Outpatient Waiting Room, entrance under the green pavilion located off [facility], at time __0945 on date ___07/28/23____. Planned Procedure Time: __1145 . Time changes happen often and if your time is changed the preop area will call you the afternoon before. - You and your visitor will be asked to self-screen and do not enter if you have any COVID symptoms. - A mask is optional within the hospital at this time. Patients may have clear liquids (water, carbonated beverages, clear teas, apple juice) until 3 hours prior to surgery with a maximum of 20 ounces. - No food from midnight until time of surgery - Infants may have breast milk until 4 hours before surgery, formula 6 hours prior to surgery. - Children will be allowed to drink immediately following surgery. If applicable, please bring a bottle or sippy cup to assist with drinking. Juice, water, soda, and popsicles are readily available. For infants on formula, please bring formula the day of surgery. Pacifiers are allowed. Take the following medications with a SIP of water the morning of surgery: ___NONE DO NOT STOP ANY OF YOUR OTHER PRESCRIPTION MEDICATIONS PRIOR TO SURGERY ?EXCEPT THE FOLLOWING Medications to discontinue per physician __NONE Please no make-up, nail icelandic, hairspray, perfume, deodorant, or body powder the day of surgery. No jewelry (including any body piercings) or valuables the day of surgery, leave them at home. Please take a shower or bath the night before, or the morning of, surgery with an antibacterial soap. Wear comfortable, loose fitting clothing. Children are encouraged to wear pajamas. - Jewelry must be removed prior to entering the operating room. Rings and piercings that are not removed may be cut off. - The hospital will not accept responsibility for valuables. - Please leave all valuables, including medications, at home the day of surgery. If you are going home after surgery, a licensed screw driver operator must drive you home. - NO public transportation without another adult if you receive anesthesia. - We recommend that an adult stay with you for 24 hours following discharge. - We also recommend that you do not drive, make important decision, drink alcoholic beverages, or take any drugs that were not prescribed by your health care provider for at least 24 hours after your discharge time. For Pediatric surgeries, we recommend two adults accompany the child home. Follow any additional instructions given to you from your surgeon. If you or anyone in your household have experienced Covid symptoms in the past week, please notify your surgeon or the nurse liaison at the phone number below for possible testing. Telephone instructions given to ___PATIENT and asked if any additional questions and then verbalized understanding. Patient advised to call surgeon office or pre surgery nurse liaison [phone] if any additional questions.
[2023-07-28] VITALS (11 sets, daily range): BP systolic 111–164; BP diastolic 51–90; PULSE 72–99; RESP 12–20; TEMP 36.2–37.2; O2SAT 95–100
--- NOTE | 2023-07-28 09:33 | P.PNAN_ITS ---
Anes - Initial Pre Proc Eval Procedure: Operation Date: 07/28/23 11:15 Proposed Procedures p Laparoscopic Recurrent Right Inguinal Hernia Repair with Mesh, Davinci Assisted - Bishnu Tracy DO Date/Time: 07/28/23 09:33 Surgeon: Bishnu Tracy DO Pre Op Diagnosis: Recurrent Right Ing Hernia Patient Data Age: 73 Gender: M Height: 1.83 m Weight: 64.5 kg Allergies Allergy/AdvReac Type Severity Reaction Status Date / Time No Known Allergies Allergy Verified 07/28/23 09:12 Home Medications Medication Instructions Recorded Confirmed Type No Home Medications 06/28/23 07/28/23 History Patient hx anesthesia problems: none Family hx anesthesia problems: none Results Review: All pre-operative results and documents have been reviewed as part of the pre- operative evaluation. [facility] Past Medical History Medical History (Updated 06/24/23 @ 10:41 by Oly Cobb CMA) Epistaxis Prostate cancer Surgical History Surgical History (Updated 06/24/23 @ 10:41 by Oly Cobb CMA) H/O radical prostatectomy 2015 H/O shoulder replacement right Family History Family History (Updated 06/24/23 @ 10:16 by TRE Rhodes) Other COPD (chronic obstructive pulmonary disease) Social History Social History Smoking packs per day: 0.5 Smoking cigarettes per day: 10.0 Years smoked: 40 Smoking pack-years: 20.00 Smoking status: Former smoker Tobacco type: cigarettes Smoking end date: 07/19/23 Alcohol intake: current Drinks per week: 12 Living arrangements: with family Spiritual care concerns: No Anes - Eval Final PreProcedure Day of Procedure 07/28/23 09:33 Patient weight: normal Heart: regular rate and rhythm Lungs: clear to auscultation Airway: Mallampati scale class II Neurological: alert and oriented Last oral intake: >/= 8 hours ASA classification: III Emergent: no Anesthetic plan: proceed Anesthesia type and monitoring: general ETT and standard monitoring Results Review: All pre-operative results and documents have been reviewed as part of the pre- operative evaluation. Informed Consent: The patient's anesthetic plan and its attendant risks and benefits were discussed with the patient/family/POA. Questions were solicited and answers provided to the satisfaction of the patient/family/POA.
[2023-07-28] MEDS: ACETAMINOPHEN 500 MG TABLET 1000 MG PO (09:45)
[2023-07-28] MEDS: KETOROLAC 15 MG/ML VIAL (*BKC) IV PUSH (09:52)
--- NOTE | 2023-07-28 10:16 | PM.IMHP ---
H&P: HPI History of Present Illness Date/Time: 07/28/23 10:16 Chief Complaint: Recurrent right inguinal hernia Narrative: This is a 73-year-old man who presents for recurrent right inguinal hernia repair. He reports no changes since last seen in the office. Review of Systems Review of Systems: All systems reviewed & are unremarkable except as noted in HPI and below Constitutional: Constitutional: Denies chills, Denies fever(s), Denies headache(s) and Denies weight loss Eyes: Eyes: Denies change in vision ENT: Denies dizziness, Denies headache(s), Denies neck mass and Denies throat swelling Cardiovascular: Cardiovascular: Denies chest pain, Denies lightheadedness and Denies dyspnea Respiratory: Respiratory: Denies cough, Denies dyspnea and Denies wheezing Gastrointestinal: Gastrointestinal: Denies abdominal pain, Denies change in bowel habits, Denies nausea and Denies vomiting Genitourinary: Genitourinary: Denies hematuria and Denies dysuria Musculoskeletal: Musculoskeletal: Reports as per HPI Integumentary/Breasts: Skin/Breast: Reports as per HPI Neurologic: Denies dizziness and Denies headache(s) Allergic/Immunologic: Allergic/Immunologic: Denies throat swelling and Denies wheezing [facility] Past Medical History Medical History (Updated 06/24/23 @ 10:41 by Oly Cobb CMA) Epistaxis Prostate cancer Surgical History Surgical History (Updated 06/24/23 @ 10:41 by Oly Cobb CMA) H/O radical prostatectomy 2016 H/O shoulder replacement right Family History Family History (Updated 06/24/23 @ 10:16 by TRE Rhodes) Other COPD (chronic obstructive pulmonary disease) Social History Social History Smoking packs per day: 0.5 Smoking cigarettes per day: 10.0 Years smoked: 40 Smoking pack-years: 20.00 Smoking status: Former smoker Tobacco type: cigarettes Smoking end date: 07/19/23 Alcohol intake: current Drinks per week: 12 Living arrangements: with family Spiritual care concerns: No Meds Home Medications and Allergies Home Medications Medication Instructions Recorded Confirmed Type No Home Medications 06/28/23 07/28/23 History Allergies Allergy/AdvReac Type Severity Reaction Status Date / Time No Known Allergies Allergy Verified 07/28/23 09:12 Exam Const: General: no acute distress and alert Orientation/consciousness: patient oriented x3 HENMT: Head: normocephalic and atraumatic Ears: hearing grossly normal bilaterally Face/Nose/Sinus: Normal nares present Mouth: Yes Normal oral and palatal mucosa present Eyes: Periorbital: periorbital findings normal Sclera: sclerae normal EOM: EOMs intact bilaterally Neck: Neck: normal visual inspection, no lymphadenopathy and trachea midline Chest: Chest palpation & inspection: normal inspection of the chest Resp: Effort & Inspection: normal respiratory effort Auscultation: clear to auscultation bilaterally Cardio: Jugular venous distension: no JVD Rate: regular rate Rhythm: regular rhythm Heart sounds: S1 normal heart sound present and S2 normal heart sound present Peripheral pulses: Peripheral pulses 2+ throughout GI: Inspection: normal to inspection GI Palp: Yes Soft to palpation, No Tenderness to palpation present (GI), No Guarding due to palpation present (GI) and No Rebound tenderness present Percussion: Yes normal to percussion Auscultation: normal bowel sounds : General: Yes no CVA tenderness Scrotum: inguinal hernia on the right Back/Spine/Pelvis: Back: no CVA tenderness Neuro: General: patient oriented x3, no focal motor deficits and CN's II-XI intact bilaterally Cognition (Neuro): normal cognition Speech: normal speech Motor exam (neuro): 5/5 motor strength present throughout Extrem: General: capillary refill normal and no clubbing, cyanosis or edema Assessment and Plan Assessment and plan (
--- NOTE | 2023-07-28 10:20 | WPDHPUPDATE1 ---
History and Physical Update Update Date/Time: 07/28/23 10:20 History and Physical has been reviewed, including an updated exam of the patient. There are NO changes in the patient's condition. Risks, benefits, and alternatives have been discussed and questions answered. Patient agrees to proceed with procedure.
[2023-07-28] MEDS: ceFAZolin 2 GM/D5W 50 ML 2 GM/50 ML BAG IVPB (10:40)
[2023-07-28] MEDS: BUPIVACAINE/EPINEPHRINE 0.5% 50 ML VIAL 30 ML INFILTRATE (11:55)
--- NOTE | 2023-07-28 12:21 | W.PM.PROC2 ---
Procedure Note - Detailed Date of Procedure 07/28/23 Pre-op Diagnosis Recurrent Right Ing Hernia Post-op Diagnosis Other (Bilateral recurrent inguinal hernias) Procedure Performed Laparoscopic recurrent bilateral inguinal hernia repair with mesh, da Kennedi assisted Surgeon Bishnu Tracy DO Anesthesia General and Local (0.5% bupivacaine with epinephrine) Indications This is a 73-year-old man who presented with intermittent right groin discomfort that he noticed about 2 months ago. He noticed a bulge along with this but the bulge did go down when he was lying down. He denies any symptoms on the left. He has a history of bilateral open inguinal hernia repair over 20 years ago. Discussions were made with the patient about treatment options and decision was made to proceed with robotic assisted laparoscopic recurrent right inguinal hernia repair with mesh. Findings Upon entering the abdomen laparoscopically, the patient was found to have bilateral recurrent inguinal hernias. He had a moderate-sized indirect right inguinal hernia and small indirect and direct left inguinal hernia. A robotic transabdominal preperitoneal approach was used for repair. The patient did have some scarring in the suprapubic midline region from his prior prostatectomy, but with careful dissection I was able to create a wide enough preperitoneal pocket for mesh placement. I then placed large 3DMax mid mesh overlying each myopectineal orifice. No specimens were obtained for pathology. Description of Procedure Procedure as well as risks, benefits, and alternatives were discussed with the patient. Written consent was obtained and placed in chart prior to procedure. Patient was brought back to surgical suite. He was placed supine on operating table. Time-out was done to confirm patient and procedure. He was then intubated by Anesthesia Department. His abdomen was prepped and draped in sterile fashion using chlorhexidine prep. 0.5% bupivacaine with epinephrine was infiltrated at each location for incision. A 12 millimeter transverse incision was made just superior to the umbilicus using a 15 blade scalpel. Blunt dissection was carried out down to the linea alba. A vertical incision was made at the linea alba using a 15 blade scalpel. The peritoneum was then bluntly entered. A 12 millimeter trocar was inserted and carbon dioxide insufflation was used to create a pneumoperitoneum. A camera was inserted and the abdominal cavity was inspected. The patient was placed in slight Trendelenburg position. An 8 millimeter incision was made on the right lateral abdomen and an 8 millimeter trocar was inserted under direct visualization. Another 8 millimeter incision was made in the left lateral abdomen and an 8 millimeter trocar was inserted under direct visualization. The robotic arms were brought up to the patient's bedside and secured to the ports. The camera and instruments were inserted. I then moved over to the robotic console and took control of the camera and instruments. After careful inspection of the abdominal cavity, I began scoring the peritoneum along the right lower quadrant using scissors with electrocautery. The preperitoneal plane was entered and this was carefully dissected caudally along the inferior epigastric vessels. Careful dissection with scissors with electrocautery and blunt dissection was used to continue this dissection. I dissected far enough laterally to allow for mesh placement, and also dissected medially to identify the pubic arch and Dave's ligament. The hernia sac was identified and carefully dissected posteriorly. The cord contents were also identified and the peritoneum was carefully dissected far enough posteriorly to allow for mesh placement. Once an adequate pocket was created, I then placed the mesh within the preperitoneal pocket and carefully unfolded it. The mesh was centered on the hernia defect with adequate overlap circumferentially. The i
[2023-07-28] MEDS: LACTATED RINGERS 1,000 ML 30 ML IV CONT ×2 (12:25)
== END 2023-07-28 14:50 | disposition home or self-care (01) ==
PROVIDERS: PCP Internal Medicine; Visit Provider Surgery
PROC: 8E0Y4CZ Robotic Assisted Procedure of Lower Extremity, Percutaneous Endoscopic Approach (ICD-10-PCS; CPT 49650; principal; 2023-07-28 11:15)
DX: K40.21 Bilateral inguinal hernia, without obstruction or gangrene, recurrent (principal); Z87.891 Personal history of nicotine dependence; Z85.46 Personal history of malignant neoplasm of prostate; Z90.79 Acquired absence of other genital organ(s)
CPT/HCPCS: 49651; S2900; A9270; C1781; J0690; J1100; J1170; J1885; J2405; J2704; J3010; J7030; J7120

== ENCOUNTER 2023-09-06 11:09 | Outpatient (CLI) | payer MEDICARE, SELFPAY ==
--- NOTE | ~2023-09-06 | US_ITS ---
EXAMINATION: US venous doppler [facility] DATE: 09/06/2023 11:45 INDICATION: Left calf pain. TECHNIQUE: Grayscale ultrasound images without and with compression and Doppler ultrasound images of the left lower extremity veins were obtained. COMPARISON: None. FINDINGS: The visualized portions of left common femoral vein, profunda (deep) femoral vein, femoral vein, popl iteal vein, peroneal veins, posterior tibial veins, and greater saphenous vein outflow are patent. IMPRESSION: 1. No deep venous thrombosis. Reviewed, dictated and finalized at location A. PAINT SHADER
--- NOTE | ~2023-09-06 | XR_ITS ---
AP and lateral views of the left tibia/fibula Clinical History: Pain Findings: No acute fracture or dislocation is seen. Osseous alignment is anatomic. Joint spaces are p reserved without significant erosive or degenerative change. Soft tissues are unremarkable. Impression: Unremarkable left tib-fib radiographs. Reviewed, dictated and finalized at [facility]. DOCTORAL RESEARCH FELLOW Impression: Unremarkable left tib-fib radiographs.
--- NOTE | ~2023-09-06 | XR_ITS ---
Lumbosacral Spine: AP and lateral views Clinical History: Pain Findings: The normal lordotic curve is maintained. The vertebral bodies and posterior elements are i ntact. The intervertebral disc spaces are preserved. There is advanced facet arthropathy at the lowe r lumbar spine. The sacroiliac joints are normally outlined. Impression: Advanced facet arthropathy of the lower lumbar spine. Reviewed, dictated and finalized at location . ENT SUPPORT TECH Impression: Advanced facet arthropathy of the lower lumbar spine.
--- NOTE | ~2023-09-06 | XR_ITS ---
Left Knee Technique: AP, lateral, and sunrise views were obtained. Clinical History: Pain Findings: No fracture or dislocation is seen. Osseous alignment is anatomic. There is mild spurring a t the medial joint line. Soft tissues are unremarkable. No joint effusion is seen. Impression: Mild spurring at the medial joint line. Reviewed, dictated and finalized at [facility]. EATER OPERATOR Impression: Mild spurring at the medial joint line.
== END 2023-09-06 11:10 | disposition home or self-care (01) ==
LOC: CHSIMG 11:12
PROVIDERS: PCP Internal Medicine; Visit Provider Internal Medicine
DX: M79.662 Pain in left lower leg (principal); M12.88 Other specific arthropathies, not elsewhere classified, other specified site
CPT/HCPCS: 72100; 73562; 73590; 93971

== ENCOUNTER 2023-09-08 08:04 | Outpatient (RCR) | payer MEDICARE, SELFPAY ==
--- NOTE | 2023-09-08 09:11 | OPREHPOC ---
Outpatient Therapy Plan of Care This is a Multidisciplinary Plan of Care that may contain components documented by all disciplines (PT, OT, and ST.) PT Problem 1 PT Problem #1 Knowledge Deficit PT Goal 1 Goal independent and compliant with HEP Target Visit 4 PT Problem 2 PT Problem #2 Pain PT Goal 1 Goal no pain in the L ramos to return to full day standing, walking, and working Target Visit 9 PT Problem 3 PT Problem #3 Impaired Strength PT Goal 1 Goal 5/5 L knee and DF strength Target Visit 9 PT Problem 4 PT Problem #4 Impaired Functional Mobil PT Goal 1 Goal LEFS to display less than 40% functional deficits OSwestry to display less than 20% functional deficits patient to ambulate with normal gait mechanics and no pain patient to ambulate 800ft or more in 6 minute walk test without rest Target Visit 9
--- NOTE | 2023-09-08 09:12 | PTOPEVAL1 ---
Assessment and note entered by JT File, PT Evaluation Information Assessment Status Evaluation Diagnosis low back pain, L knee pain Onset 07/30/23 Subjective Information patient reports the issues is between the knee and the ankle. he reports he has had xrays, ultrasounds to evaluate and have found nothing. he reports the injury stems from running into a metal pipe with the L knee. he reports he also was complicated from having hernia surgery back in july. he reports if he stays off the L LE, it does not bother him. he reports he does not have pain in the back. he reports no NTB in the L LE. he reports the pain is a bony pain. he reports the pain is all along the front of the L ramos. Reported Pain Level Pain Score 0: Self Report Assessment PT Clinical Summary mr. jenkins is a 73 yo man who presents to skilled PT services for evaluation and treatment of L lower leg pain. he presetns with signs and symptoms of a deep contusion to the anterior tibialis mm. he presents with pain, decreased flexibility/rom, and weakness. he would benefit from continued skilled PT to address his objective /functional deficits, and return to prior level functional activities/quality of life. Plan of Care Interventions Electrical Stimulation,Gait Training,Hot Pack/Cold Pack,Manual Therapy,Neuro Re-education,Patient/ Caregiver Educati,Therapeutic Activities, Therapeutic Exercise PT Services Indicated Yes Treatment Frequency and 3x weekly for 9 visits Duration These treatments will address the objective and functional deficits as defined above. The patient will be advanced safely and appropriately in order for the patient to progress towards his/her prior level of function. Additional exercises will be introduced and as well as a comprehensive home exercise program upon discharge, if needed, ?to ensure carryover of functional gains achieved in the clinic. This treatment plan has been reviewed and agreement upon by the patient.
--- NOTE | 2023-09-15 07:05 | PCPTNOTE ---
Patient would like to be discharged as of now, as he reports he is getting worse. Patient states his doctor is ordering an MRI.
== END 2023-09-10 14:44 | disposition home or self-care (01) ==
LOC: CHSPT 08:04
PROVIDERS: PCP Internal Medicine; Visit Provider Internal Medicine
DX: M54.50 Low back pain, unspecified (principal); M25.562 Pain in left knee
CPT/HCPCS: 97110; 97140; 97161

== ENCOUNTER 2023-09-13 11:37 | Outpatient (CLI) | payer MEDICARE, SELFPAY ==
[2023-09-13 11:59] LABS: Basophils Absolute Auto 0.04 K/mm3 (0.00-0.10); Basophils Percent Auto 0.9 % (0.0-1.0); Eosinophils Absolute Auto 0.06 K/mm3 (0.02-0.50); Eosinophils Percent Auto 1.4 % (1.0-6.0); Hematocrit 43.1 % (37.0-46.0); Hemoglobin 14.4 g/dL (12.4-15.3); Immature Granulocyte Absolute 0.01 K/mm3 (0.00-0.00); Immature Granulocyte Percent A 0.2 % (0.0-0.0); Lymphocytes Absolute Auto 1.57 K/mm3 (1.10-4.50); Lymphocytes Percent Auto 36.7 % (18.0-42.0); Mean Corpuscular HGB Conc 33.4 g/dL (32.0-36.0); Mean Corpuscular Hemoglobin 32.4 pg (27.0-31.0); Mean Corpuscular Volume 97.1 fL (78.0-102.0); Mean Platelet Volume 8.8 fl (8.7-11.0); Monocytes Absolute Auto 0.55 K/mm3 (0.10-0.90); Monocytes Percent Auto 12.9 % (2.0-11.0); Neutrophils Absolute Auto 2.1 K/mm3 (1.7-7.2); Neutrophils Percent Auto 47.9 % (50.0-70.0); Platelet Count Result 286 K/mm3 (150-420); Red Blood Count 4.44 M/mm3 (4.70-6.10); Red Cell Distribution Width 12.7 % (11.6-14.4); White Blood Count 4.3 K/mm3 (4.8-10.8)
[2023-09-13 13:15] LABS: Alanine Aminotransferase 24 U/L (16-63); Albumin Level 3.9 g/dL (3.4-5.0); Alkaline Phosphatase 50 U/L (46-116); Anion Gap 7 mmol/L (8-16); Aspartate Amino Transferase 15 U/L (15-37); Bilirubin,Total 0.5 mg/dL (0.00-1.00); Blood Urea Nitrogen 15 mg/dL (7-18); Calcium 8.7 mg/dL (8.5-10.1); Carbon Dioxide 31 mmol/L (21-32); Chloride 96 mmol/L (98-108); Estimated Glomerular Filt Rate > 60; Glucose 100 mg/dL (70-99); Osmolality Calculated 278 mOsm/kg (285-295); Potassium 4.4 mmol/L (3.5-5.1); Prostate Specific Antigen 1.3 ng/mL (< OR = 4.0); Sodium 134 mmol/L (136-145)
[2023-09-13 13:16] LABS: CRP < 0.5 mg/dL (0.0-0.9)
== END 2023-09-13 11:38 | disposition home or self-care (01) ==
LOC: CHSLAB 11:40
PROVIDERS: PCP Internal Medicine; Visit Provider Internal Medicine
DX: I73.9 Peripheral vascular disease, unspecified (principal); Z85.46 Personal history of malignant neoplasm of prostate
CPT/HCPCS: 36415; 80053; 84153; 85025; 86140

== ENCOUNTER 2023-09-14 08:04 | Outpatient (CLI) | payer MEDICARE, SELFPAY ==
--- NOTE | ~2023-09-14 | US_ITS ---
EXAMINATION: US art doppler w press LE BI DATE: 09/14/2023 08:37 INDICATION: Left lower limb pain TECHNIQUE: Segmental pressures and plethysmographic and Doppler waveforms of the brachial and lower e xtremity arteries were obtained. COMPARISON: None. FINDINGS: Right and left brachial artery pressures of 134 mm Hg and 138 mm Hg, respectively, are concordant (no rmal difference <= 30 mmHg). The right ankle-brachial index (MARIMAR) is 1.17 (normal >= 0.9-1). The right great toe-brachial index (T BI) is 0.74 (normal >= 0.6-0.8). Arterial waveforms are triphasic in the right common femoral, poplit eal and dorsalis pedis arteries. There is a low amplitude of the right posterior tibial artery wavefo rm which nonetheless appears triphasic with brisk systolic upstroke. The left MARIMAR is 1.12. The left TBI is 0.83. Arterial waveforms are triphasic at the left common femor al, popliteal and posterior tibial arteries and biphasic at the left dorsalis pedis artery, all with brisk systolic upstrokes. IMPRESSION: 1. Normal MARIMAR's and TBI's bilaterally. No significant occlusive disease. Reviewed, dictated and finalized at location A. E HANDLER
== END 2023-09-14 08:05 | disposition home or self-care (01) ==
LOC: CHSIMG 08:06
PROVIDERS: PCP Internal Medicine; Visit Provider Internal Medicine
DX: M79.605 Pain in left leg (principal); I73.9 Peripheral vascular disease, unspecified
CPT/HCPCS: 93923

== ENCOUNTER 2023-09-18 06:54 | Outpatient (CLI) | payer MEDICARE, SELFPAY ==
--- NOTE | ~2023-09-18 | MR_ITS ---
MRI of the lumbar spine Clinical History: Left lower extremity pain Technique: Axial T2-weighted images, and sagittal T1-weighted, T2-weighted, and T2 fat-sat images wer e acquired. Findings: There is no fracture or subluxation of the lumbar spine. Vertebral bodies maintain normal h eight and alignment. No suspicious bone marrow signal abnormality identified. At L1-L2, there is minimal disc bulge and minimal facet arthropathy. No central canal stenosis or def inite neural foraminal narrowing. At L2-L3, there is minimal disc bulge and mild facet arthropathy. No central canal stenosis. There is mild to moderate bilateral neural foraminal narrowing. At L3-L4, there is mild disc bulge and mild to moderate facet arthropathy. No central canal stenosis. There is moderate bilateral neural foraminal narrowing, right worse than left. At L4-L5, there is diffuse disc bulge and severe facet arthropathy. There is right lateral recess pati nosis and severe right neural foraminal narrowing. There is mild to moderate left neural foraminal na rrowing. No central canal stenosis. At L5-S1, there is disc bulge and moderate facet arthropathy. No central canal stenosis. There is sev ere left neural foraminal narrowing. Right neural foramen preserved. Paravertebral soft tissues are unremarkable. Impression: Mild to moderate degenerative spondylosis, especially the lower lumbar spine, as detailed above. Reviewed, dictated and finalized at [facility]. ISION OPTICAL GOODS WORKER Impression: Mild to moderate degenerative spondylosis, especially the lower lumbar spine, a s detailed above.
== END 2023-09-18 06:55 | disposition home or self-care (01) ==
PROVIDERS: PCP Internal Medicine; Visit Provider Internal Medicine
DX: I73.9 Peripheral vascular disease, unspecified (principal); Z85.46 Personal history of malignant neoplasm of prostate; M43.06 Spondylolysis, lumbar region
CPT/HCPCS: 72148

== ENCOUNTER 2025-01-13 16:55 | Emergency (ER) | payer MEDICARE, SELFPAY ==
[2025-01-13 16:55] VITALS: BP 156/80; PULSE 95; RESP 16; TEMP 36.7; O2SAT 96
--- OUTSIDE RECORDS SUMMARY | 2025-01-13 16:57 | XMS_ITS | Clinical Summary ---
Author Organization [facility] Address [address] [place] [address] Care Team Providers Care Nuclear Auxiliary Operator Name Role Phone Otto Salvador MD Primary Care Provider [phone] Allergies No known active allergies Medications No known medications Active Problems Problem Noted Date Diagnosed Date Epistaxis 06/21/2022 Acute posterior epistaxis 06/21/2022 Social History Tobacco Use Types Packs/Day Years Used Date Smoking Tobacco: Every Day Cigarettes 0.5 20 Tobacco Cessation:Ready to Q uit: Not Asked; Counseling Given: Not Answered Alcohol Use Standard Drinks/Week Comments Yes 46.7 (1 standard drink = 0.6 oz pure alcohol) Sex and Gender Information Value Date Recorded Sex Assigned at Not on file Legal Sex Male 10:37 PM CDT Gender Identity Not on file Sexual Orientation Not on file Last Filed Vital Signs Vital Sign Reading Time Taken Comments Blood Pressure 153/85 06/14/2024 1:25 PM CDT Pulse 66 06/14/2024 1:25 PM CDT Temperature 36.1 C (97 F) 06/14/2024 1:25 PM CDT Respiratory Rate 16 06/14/2024 1:25 PM CDT Oxygen Saturation 97% 06/14/2024 1:25 PM CDT Inhaled Oxygen Concentration - - Weight 64.4 kg (142 lb) 06/14/2024 12:51 PM CDT Height 182.9 cm (6') 06/14/2024 12:51 PM CDT Body Mass Index 19.26 06/14/2024 12:51 PM CDT Plan of Treatment Health Maintenance Due Date Last Done Comments Colorectal Cancer Screening Colonoscopy (10 Years) 1950 Hepatitis C 1968 DTaP, Tdap and Td Vaccines ( 1 - Tdap) 1969 Pneumococcal Vaccine: 50+ Ye ars (1 of 2 - PCV) 1969 Zoster Vaccines (1 of 2) 2000 AAA SCREENING 2015 Annual Medicare Wellness Visit 2015 COVID-19 Vaccine ( - 2023-2 5 season) 2024 RSV Immunization or 60+ Years (1 - 1-dose 75+ series) 2025 Meningococcal B Vaccine Aged Out No l onger eligible based on patient's age to complete this topic Meningococcal Vaccine Aged Out No silver thea eligible based on patient's age to complete this topic RSV Immunizations Under 20 Months Aged Out No longer eligible based on patient's age to complete this topic Medical Devices Implanted Type Area Nanny Caregiver Device Identifier Shelf Expiration Date Model / Serial / Lot Tecnis Simplicity Delivery System Implanted:Qty : 1 on 05/22/2024 by Aura Muñiz MD at [facility] Right: Eye [employer] [id number] 06/10/2026 [id number] / [id number] / Tencis 1-Piece Iol Implanted:Qty : 1 on 06/14/2024 by Aura Muñiz MD at [facility] Left: Eye [employer] [id number] 11/24/2025 [id number] / [id number] / Insurance MEDICARE [employer] Advance Directives * Full Code (Latest Code Status on File) Date Activated Date Inactivated Comments 06/21/2022 4:56 PM 06/21/2022 10:03 PM Care Teams Nuclear Auxiliary Operator Relationship Specialty Start Date End Date Otto Salvador MD [address] [place] [address] PCP - General INTERNAL MEDICINE 06/21/22
--- OUTSIDE RECORDS SUMMARY | 2025-01-13 16:57 | XMS_ITS | Clinical Summary ---
Author Organization [place] [id number] [facility] Address [address] [place] [address] Care Team Providers Care Canal Lock Tender Chief Operator Name Role Phone Yue Ott MD, Markell Hill Unavailable Otto Salvador MD Primary Care Provider [phone] Allergies No known active allergies Medications acetaminophen 500 mg capsuleIndicati ons:Pain Take 2 capsules (1,000 mg total) by mouth every 6 (six) hours as needed for pain 60 capsule 1 09/14/2019 Active aspirin 325 mg enteric coated tabletIndicatio ns:Deep Vein Thrombosis Prevention Take 1 tablet (325 mg total) by mouth 2 (two) times a day for 14 days 28 tablet 09/14/2019 Active azithromycin (ZITHROMAX) 250 mg tablet 09/01/2019 Active oxyCODONE (ROXICODONE) 5 mg immediate release tabletIndicatio ns:Pain Take 1-2 tablets (5-10 mg total) by mouth every 4 (four) hours as needed for pain 40 tablet 10/12/2019 Active Active Problems Problem Noted Date Diagnosed Date Chronic right shoulder pain 08/15/2019 Nontraumatic complete tear of right rotator cuff 08/15/2019 Overview (08/15/2019): Added automatically from request for surgery [id number] Malignant neoplasm of prostate 06/19/2015 Cancer Staging:Clinical stage from 06/20/2015:Stage IIIB(cT3a, cN0, cM0, PSA: 8, Grade Group: 3) - Signed by Rafael Cook MD on 05/18/2019 Pathologic stage from 09/09/2015:Stage IIIB(pT3a, pN0, cM0, PSA: 8, Grade Group: 2) - Signed by Rafael Cook MD on 05/18/2019 Overview (12/10/2017): Description: Lap RRP 09/09/2015--Lisa: 3+4=7--Margin: 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) (lisa: 3+4=7)--Stage: T3a/NO/MO Surgical History Surgery Date Site/Laterality Comments [place] UNLISTED PROCEDURE ABDOME N PERITONEUM & OMENTUM Hernia Repair - (Added by TW Conv) [place] LAP,PROSTATECTOMY,RADICAL,W/NER VE SPARE,INCL ROBOTIC Prostatect Retropubic Radical W/ Nerve Sparing Laparoscopic - 09/09/2015 (Added by TW Conv) [place] LAPS SURG BILATERAL TOTAL PELVIC LMPHADECTOMY Laparoscopy With Bilateral Total Pelvic Lymphadenectomy - 09/09/2015 (Added by TW Conv) Medical History Medical History Date Comments Hx of carcinoma in situ of prostate Osteoarthritis Rotator cuff dysfunction Family History Medical History Relation Name Comments Colon cancer Father Colon cancer - (Added by TW Conv) Colon cancer Mother Colon cancer - (Added by TW Conv) Anesthesia problems Neg Hx Relation Name Status Comments Father Mother Social History Tobacco Use Types Packs/Day Years Used Date Smoking Tobacco: Every Day Cigarettes 0.5 58.4 Started: 1966 Smokeless Tobacco: Never Comments:Quit 5 times over t he years and started back Alcohol Use Standard Drinks/Week Comments Yes 14 (1 standard drink = 0.6 oz pu re alcohol) Sex and Gender Information Value Date Recorded Sex Assigned at Not on file Legal Sex Male 9:13 PM DEICER REPAIRER ELECTRIC Gender Identity Not on file Sexual Orientation Not on file Obstetrics History Last Filed Vital Signs Vital Sign Reading Time Taken Comments Blood Pressure 138/74 09/14/2019 6:45 AM DEICER REPAIRER ELECTRIC Pulse 82 09/14/2019 6:45 AM DEICER REPAIRER ELECTRIC Temperature 36.4 C (97.5 F) 09/14/2019 6:45 AM DEICER REPAIRER ELECTRIC Respiratory Rate 20 09/14/2019 5:34 AM DEICER REPAIRER ELECTRIC Oxygen Saturation 97% 09/14/2019 6:45 AM DEICER REPAIRER ELECTRIC Inhaled Oxygen Concentration - - Weight 63.5 kg (140 lb) 09/13/2019 9:10 AM DEICER REPAIRER ELECTRIC Height 182.9 cm (6') 09/13/2019 9:10 AM DEICER REPAIRER ELECTRIC Body Mass Index 18.99 09/13/2019 9:10 AM DEICER REPAIRER ELECTRIC Plan of Treatment Not on file Medical Devices Implanted Type Area Machine Tool Rebuilder Device Identifier Shelf Expiration Date Model / Serial / Lot Jayme [employer] [id number] 25mm Reverse Shoulder Baseplate Glenoid Trabecular Metal - [id number] Implanted:Qty: 1 on 09/13/2019 by Eliseo Kovacs MD at [facility] Right: Shoulder [employer] [id number] 03/29/2029 [id number] / / [id number] [employer] [id number] 36mm Reverse Shoulder Sphere Glenoid Trabecular Metal - [id number] Implanted:Qty: 1 on 09/13/2019 by Eliseo Kovacs MD at [facility] Right: Shoulder [employer] [id number] 11 07/29/2029 [id number] / / [id number] [employer] 01.80889.042 Ncb Anatomical Shoulder 4.5mm 42mm Inverse Reverse Lock Self Tap - [id number] Implanted:Qty: 1 on 09/13/2019 by Eliseo Kovacs MD at [facility] Right: Shoulder [employer] [id number] 2 02/27/2024 [id number] / / [id number] [employer] 01.98729.042 Ncb Anatomical Shoulder 4.5mm 42mm Inverse Reverse Lock Self Tap - [id number] Implanted:Qty: 1 on 09/13/2019 by Eliseo Kovacs MD at [facility] Right: Shoulder [employer] [id number] 2 01/28/2024 [id number] / / [id number] [employer] [id number] 14mm 130mm Shoulder Stem Humeral Trabecular Metal Tivanium - [id number] Implanted:Qty: 1 on 09/13/2019 by Eliseo Kovacs MD at [facility] Right: Shoulder [employer] [id number] 13 02/26/2029 [id number] / / [id number] [employer] [id number] 36mm H+3mm Reverse Humerus 7d Standard Liner Shoulder Trabecular - [id number] Implanted:Qty: 1 on 09/13/2019 by Eliseo Kovacs MD at [facility] Right: Shoulder [employer] [id number] 03 05/29/2027 [id number] / / [id number] Insurance MEDICARE [facility] MEDICARE SUPPLEMENT INSURANCE MEDICARE [facility] MEDICARE SUPPLEMENT INSURANCE Advance Directives For more information, please contact: [phone] * Full Code (Latest Code Status on File) Date Activated Date Inactivated Comments 09/13/2019 12:50 PM 09/14/2019 7:05 PM Care Teams Canal Lock Tender Chief Operator Relationship Specialty Start Date End Date Otto Salvador MD PCP - General Internal Medicine 08/15/19 Markell Turner Jr., MD Referring Physician Urology 05/18/19
--- OUTSIDE RECORDS SUMMARY | 2025-01-13 16:57 | XMS_ITS | Referral Summary ---
Author Organization [place] [address] [facility] Address [address] [place] [address] Care Team Providers Care Bullard Machine Operator Name Role Phone Yue Ott MD, Markell Hill Unavailable Otto Salvador MD Primary Care Provider [phone] Allergies No known active allergies Medications acetaminophen [...] (08/15/2019): Added automatically from request for surgery [id number] Malignant neoplasm of prostate 06/19/2015 Cancer Staging:Clinical stage from 06/20/2015:Stage IIIB(cT3a, cN0, cM0, PSA: 8, Grade Group: 3) - Signed by Rafael Cook MD on 05/18/2019 Pathologic stage from 09/09/2015:Stage IIIB(pT3a, pN0, cM0, PSA: 8, Grade Group: 2) - Signed by Rafael Cook MD on 05/18/2019 Overview (12/10/2017): Description: Lap RRP 09/09/2015--Lisa: 3+4=7--Margin: 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) (lisa: 3+4=7)--Stage: T3a/NO/MO Social History Tobacco Use Types Packs/Day Years [...] on file Legal Sex Male 9:13 PM MRI SPECIALIST Gender Identity Not on file Sexual Orientation Not on file Last Filed Vital Signs Vital Sign Reading Time Taken Comments Blood Pressure 138/74 09/14/2019 6:45 AM MRI SPECIALIST Pulse 82 09/14/2019 6:45 AM MRI SPECIALIST Temperature 36.4 C (97.5 F) 09/14/2019 6:45 AM MRI SPECIALIST Respiratory Rate 20 09/14/2019 5:34 AM MRI SPECIALIST Oxygen Saturation 97% 09/14/2019 6:45 AM MRI SPECIALIST Inhaled Oxygen Concentration - - Weight 63.5 kg (140 lb) 09/13/2019 9:10 AM MRI SPECIALIST Height 182.9 cm (6') 09/13/2019 9:10 AM MRI SPECIALIST Body Mass Index 18.99 09/13/2019 9:10 AM MRI SPECIALIST Plan of Treatment Not on file Medical Devices Implanted Type Area Dishing Machine Operator Device Identifier Shelf Expiration Date Model / Serial / Lot Jayme [employer] [id number] 25mm Reverse Shoulder Baseplate Glenoid Trabecular Metal - [id number] Implanted:Qty: 1 on 09/13/2019 by Eliseo Kovacs MD at [facility] Right: Shoulder [employer] [id number] 02 03/29/2029 [id number] / / [id number] [employer] [id number] 36mm Reverse Shoulder Sphere Glenoid Trabecular Metal - [id number] Implanted:Qty: 1 on 09/13/2019 by Eliseo Kovacs MD at [facility] Right: Shoulder [employer] [id number] 11 07/29/2029 [id number] / / [id number] [employer] 01.69702.042 Ncb Anatomical Shoulder 4.5mm 42mm Inverse Reverse Lock Self Tap - [id number] Implanted:Qty: 1 on 09/13/2019 by Eliseo Kovacs MD at [facility] Right: Shoulder [employer] [id number] 2 02/27/2024 01.27744.042 / / [id number] [employer] .94569.042 Ncb Anatomical Shoulder 4.5mm 42mm Inverse Reverse Lock Self Tap - [id number] Implanted:Qty: 1 on 09/13/2019 by Eliseo Kovacs MD at [facility] Right: Shoulder [employer] [id number] 2 01/28/2024 01.98017.042 / / [id number] [employer] [id number] 14mm 130mm Shoulder Stem Humeral Trabecular Metal Tivanium - [id number] Implanted:Qty: 1 on 09/13/2019 by Eliseo Kovacs MD at [facility] Right: Shoulder [employer] [id number] 13 02/26/2029 [id number] / / [id number] [employer] [id number] 36mm H+3mm Reverse Humerus 7d Standard Liner Shoulder Trabecular - [id number] Implanted:Qty: 1 on 09/13/2019 by Eliseo Kovacs MD at [facility] Right: Shoulder [employer] [id number] 03 05/29/2027 [id number] / / [id number] Insurance MEDICARE [facility] MEDICARE SUPPLEMENT INSURANCE MEDICARE [facility] MEDICARE SUPPLEMENT INSURANCE Advance Directives For more information, please contact: [phone] * Full Code (Latest Code Status on File) Date Activated Date Inactivated Comments 09/13/2019 12:50 PM 09/14/2019 7:05 PM Care Teams Bullard Machine Operator Relationship Specialty Start Date End Date Otto Salvador MD PCP - General Internal Medicine 08/15/19 Markell Turner Jr., MD Referring Physician Urology 05/18/19
--- NOTE | 2025-01-13 17:13 | ED.GENADULT ---
HPI - General Adult General Chief complaint: Skin/Abscess/Foreign Body Stated complaint: left foot injury Source: patient Mode of arrival: ambulatory History of Present Illness HPI narrative: 74 years old white male, came to the ED by private car from home complaining of itching between left toes started 2-3 days ago, required him to scratch too much causing skin injury between the toes and the dorsal side of the 4th toe. Patient is not diabetic, denies any fever, chills, nausea, vomiting or trauma. Related Data Allergies Allergy/AdvReac Type Severity Reaction Status Date / Time No Known Allergies Allergy Verified 08/09/23 14:11 Review of Systems Review of Systems: All systems reviewed & are unremarkable except as noted in HPI and below PMFSH Past Medical History Medical History Prostate cancer Epistaxis Surgical History Surgical History Hx of inguinal hernia repair Laparoscopic recurrent bilateral inguinal hernia repair with mesh, da Kennedi assisted on 07/28/23 [facility] H/O shoulder replacement right H/O radical prostatectomy 2015 Family History Family History Other COPD (chronic obstructive pulmonary disease) Social History Social History Smoking packs per day: 0.5 Smoking cigarettes per day: 10.0 Years smoked: 40 Smoking pack-years: 20.00 Smoking status: Former smoker Tobacco type: cigarettes Smoking end date: 07/19/23 Alcohol intake: current Drinks per week: 12 Living arrangements: with family Spiritual care concerns: No Exam Narrative: General appearance: Well-developed, well-nourished Skin: Normal color . left 3rd, 4th and 5th toe showing macerated skin in between, blister-like lesion under the 4th toe and open blisters at the dorsal side of the 4th toe surrounded by erythema. No discharge. ENT: Oropharynx normal, ears normal, nose normal Neck: Supple, nontender Chest and respiratory: Airway patent, no respiratory distress, no accessory muscle use Heart: Regular rate/rhythm Abdomen: Soft, nontender, no organomegaly, quiet bowel sounds Vascular: Normal peripheral pulses, normal capillary refill. Musculoskeletal: Normal range of motion, nontender back Neurologic: Alert and oriented ×3, PROMOTIONAL DEMONSTRATOR is normal as tested, no gross motor deficit Course Vital Signs Vital signs: Vital Signs Temperature 36.7 C 01/13/25 16:55 Pulse Rate 95 01/13/25 16:55 Respiratory Rate 16 01/13/25 16:55 Blood Pressure 156/80 H 01/13/25 16:55 Pulse Oximetry 96 01/13/25 16:55 Oxygen Delivery Room Air 01/13/25 16:55 Temperature 36.7 C 01/13/25 16:55 Pulse Rate 95 01/13/25 16:55 Respiratory Rate 16 01/13/25 16:55 Blood Pressure 156/80 H 01/13/25 16:55 Pulse Oximetry 96 01/13/25 16:55 Oxygen Delivery Room Air 01/13/25 16:55 Medical Decision Making [facility] Narrative Medical decision making narrative: Differential diagnosis include tinea pedis superimposed with secondary bacterial infection Discharged on clotrimazole - betamethasone cream plus Keflex Differential Diagnosis Differential Diagnosis: as above Vital Signs Vital Signs: Vital Signs Temperature 36.7 C 01/13/25 16:55 Pulse Rate 95 01/13/25 16:55 Respiratory Rate 16 01/13/25 16:55 Blood Pressure 156/80 H 01/13/25 16:55 Pulse Oximetry 96 01/13/25 16:55 Oxygen Delivery Room Air 01/13/25 16:55 Temperature 36.7 C 01/13/25 16:55 Pulse Rate 95 01/13/25 16:55 Respiratory Rate 16 01/13/25 16:55 Blood Pressure 156/80 H 01/13/25 16:55 Pulse Oximetry 96 01/13/25 16:55 Oxygen Delivery Room Air 01/13/25 16:55 Critical Care Time Critical Care Time Critical Care Time: No Discharge Plan Discharge Clinical Impression: Tinea pedis, Cellulitis Patient Disposition: Home Condition: Stable Instructions: Antibiotic Form, Cellulitis (ED), Skin Yeast Infection (ED) Additional Instructions: Return if symptoms are worsening , call your family physician for appointment, take Tylenol, ibuprofen as as needed for aches and pain, continue home medications. Keep foot elevated, do not wear tight shoes, keep the foot dry and clean Patient Language: Cook Islander Prescriptions: New clotrimazole-betamethasone 1-0.05 % cream 1 applic topical BID 14 Days Qty: 15 0RF cephalexin 500 mg tablet 500 mg PO Q6H 7 Days Qty: 28 0RF Follow-up/Referrals: Otto Salvador MD [Primary Care Provider] -
--- OUTSIDE RECORDS SUMMARY | 2025-01-13 17:19 | XMS_ITS | Referral Summary ---
Author Organization [place] [address] [facility] Address [address] [place] [address] Care Team Providers Care Diesel Machinist Name Role Phone Yue Ott MD, Markell Hill Unavailable [phone] Otto Salvador MD Primary Care Provider [phone] Allergies No known active allergies Medications acetaminophen [...] (08/15/2019): Added automatically from request for surgery [id number] Malignant neoplasm of prostate 06/19/2015 Cancer Staging:Clinical [...] on file Legal Sex Male 9:13 PM SPRING FITTER Gender Identity Not on file Sexual Orientation Not on file Last Filed Vital Signs Vital Sign Reading Time Taken Comments Blood Pressure 138/74 09/14/2019 6:45 AM SPRING FITTER Pulse 82 09/14/2019 6:45 AM SPRING FITTER Temperature 36.4 C (97.5 F) 09/14/2019 6:45 AM SPRING FITTER Respiratory Rate 20 09/14/2019 5:34 AM SPRING FITTER Oxygen Saturation 97% 09/14/2019 6:45 AM SPRING FITTER Inhaled Oxygen Concentration - - Weight 63.5 kg (140 lb) 09/13/2019 9:10 AM SPRING FITTER Height 182.9 cm (6') 09/13/2019 9:10 AM SPRING FITTER Body Mass Index 18.99 09/13/2019 9:10 AM SPRING FITTER Plan of Treatment Not on file Medical Devices Implanted Type Area Program Manager Slp Device Identifier Shelf Expiration Date Model / Serial / Lot Jayme [employer] [id number] 25mm Reverse Shoulder Baseplate Glenoid Trabecular Metal - [id number] Implanted:Qty: 1 on 09/13/2019 by Eliseo Kovacs MD at [facility] Right: Shoulder [employer] [id number] 02 03/29/2029 [id number] / / [id number] [employer] [id number] 36mm Reverse Shoulder Sphere Glenoid Trabecular Metal - [id number] Implanted:Qty: 1 on 09/13/2019 by Eliseo Kovacs MD at [facility] Right: Shoulder [employer] [id number] 11 07/29/2029 [id number] / / [id number] [employer] 01.27320.042 Ncb Anatomical Shoulder 4.5mm 42mm Inverse Reverse Lock Self Tap - [id number] Implanted:Qty: 1 on 09/13/2019 by Eliseo Kovacs MD at [facility] Right: Shoulder [employer] [id number] 2 02/27/2024 01.63880.042 / / [id number] [employer] .31673.042 Ncb Anatomical Shoulder 4.5mm 42mm Inverse Reverse Lock Self Tap - [id number] Implanted:Qty: 1 on 09/13/2019 by Eliseo Kovacs MD at [facility] Right: Shoulder [employer] [id number] 2 01/28/2024 01.04403.042 / / [id number] [employer] [id number] 14mm 130mm Shoulder Stem Humeral Trabecular Metal Tivanium - [id number] Implanted:Qty: 1 on 09/13/2019 by Eliseo Kovacs MD at [facility] Right: Shoulder [employer] [id number] 13 02/26/2029 [id number] / / [id number] [employer] [id number] 36mm H+3mm Reverse Humerus 7d Standard Liner Shoulder Trabecular - [id number] Implanted:Qty: 1 on 09/13/2019 by Eliseo Kovacs MD at [facility] Right: Shoulder [employer] [id number] 03 05/29/2027 [id number] / / [id number] Insurance MEDICARE [facility] MEDICARE SUPPLEMENT INSURANCE MEDICARE [facility] MEDICARE SUPPLEMENT INSURANCE Advance Directives For more information, please contact: [phone] * Full Code (Latest Code Status on File) Date Activated Date Inactivated Comments 09/13/2019 12:50 PM 09/14/2019 7:05 PM Care Teams Diesel Machinist Relationship Specialty Start Date End Date Otto Salvador MD PCP - General Internal Medicine 08/15/19 Markell Turner Jr., MD Referring Physician Urology 05/18/19
--- OUTSIDE RECORDS SUMMARY | 2025-01-13 17:19 | XMS_ITS | Clinical Summary ---
Author Organization [place] [id number] [facility] Address [address] [place] [address] Care Team Providers Care Casing Crew Name Role Phone Yue Ott MD, Markell Hill Unavailable Otto Salvador MD Primary Care Provider [phone] Allergies No known active allergies Medications acetaminophen [...] (08/15/2019): Added automatically from request for surgery [id number] Malignant neoplasm of prostate 06/19/2015 Cancer Staging:Clinical [...] T3a/NO/MO Surgical History Surgery Date Site/Laterality Comments CA UNLISTED PROCEDURE ABDOME N PERITONEUM & OMENTUM Hernia Repair - (Added by TW Conv) CA LAP,PROSTATECTOMY,RADICAL,W/NER VE SPARE,INCL ROBOTIC Prostatect Retropubic Radical W/ Nerve Sparing Laparoscopic - 09/09/2015 (Added by TW Conv) CA LAPS SURG BILATERAL TOTAL PELVIC LMPHADECTOMY Laparoscopy [...] on file Legal Sex Male 9:13 PM VAULT CASHIER Gender Identity Not on file Sexual Orientation Not on file Obstetrics History Last Filed Vital Signs Vital Sign Reading Time Taken Comments Blood Pressure 138/74 09/14/2019 6:45 AM VAULT CASHIER Pulse 82 09/14/2019 6:45 AM VAULT CASHIER Temperature 36.4 C (97.5 F) 09/14/2019 6:45 AM VAULT CASHIER Respiratory Rate 20 09/14/2019 5:34 AM VAULT CASHIER Oxygen Saturation 97% 09/14/2019 6:45 AM VAULT CASHIER Inhaled Oxygen Concentration - - Weight 63.5 kg (140 lb) 09/13/2019 9:10 AM VAULT CASHIER Height 182.9 cm (6') 09/13/2019 9:10 AM VAULT CASHIER Body Mass Index 18.99 09/13/2019 9:10 AM VAULT CASHIER Plan of Treatment Not on file Medical Devices Implanted Type Area Supervisor Motor[employer] Device Identifier Shelf Expiration Date Model / Serial / Lot [employer] [id number] 25mm Reverse Shoulder Baseplate Glenoid Trabecular Metal - [id number] Implanted:Qty: 1 on 09/13/2019 by Eliseo Kovacs MD at [facility] Right: Shoulder [employer] [id number] 02 03/29/2029 [id number] / / [id number] [employer] [id number] 36mm Reverse Shoulder Sphere Glenoid Trabecular Metal - [id number] Implanted:Qty: 1 on 09/13/2019 by Eliseo Kovacs MD at [facility] Right: Shoulder [employer] [id number] 07/29/2029 [id number] / / [id number] [employer] 01.94498.042 Ncb Anatomical Shoulder 4.5mm 42mm Inverse Reverse Lock Self Tap - [id number] Implanted:Qty: 1 on 09/13/2019 by Eliseo Kovacs MD at [facility] Right: Shoulder [employer] [id number] 2 02/27/2024 [id number] / / [id number] [employer] 01.72865.042 Ncb Anatomical Shoulder 4.5mm 42mm Inverse Reverse Lock Self Tap - [id number] Implanted:Qty: 1 on 09/13/2019 by Eliseo Kovacs MD at [facility] Right: Shoulder [employer] [id number] 2 01/28/2024 [id number] / / [id number] [employer] [id number] 14mm 130mm Shoulder Stem Humeral Trabecular Metal Tivanium - [id number] Implanted:Qty: 1 on 09/13/2019 by Eliseo Kovacs MD at [facility] Right: Shoulder [employer] [id number] 13 02/26/2029 [id number] / / [id number] [employer] [id number] 36mm H+3mm Reverse Humerus 7d Standard Liner Shoulder Trabecular - [id number] Implanted:Qty: 1 on 09/13/2019 by Eliseo Kovacs MD at [facility] Right: Shoulder [employer] [id number] 03 05/29/2027 [id number] / / [id number] Insurance MEDICARE [facility] MEDICARE SUPPLEMENT INSURANCE MEDICARE [facility] MEDICARE SUPPLEMENT INSURANCE Advance Directives For more information, please contact: [phone] * Full Code (Latest Code Status on File) Date Activated Date Inactivated Comments 09/13/2019 12:50 PM 09/14/2019 7:05 PM Care Teams Casing Crew Relationship Specialty Start Date End Date Otto Salvador MD PCP - General Internal Medicine 08/15/19 Markell Turner Jr., MD Referring Physician Urology 05/18/19
--- OUTSIDE RECORDS SUMMARY | 2025-01-13 17:19 | XMS_ITS | Clinical Summary ---
Author Organization [facility] Address [address] [place] [address] Care Team Providers Care Recruiting Operations Consultant Name Role Phone Otto Salvador MD Primary Care Provider [phone] Allergies No known active allergies Medications No [...] this topic Medical Devices Implanted Type Area Scientific Systems Analyst Device Identifier Shelf Expiration Date Model / Serial / Lot Tecnis Simplicity Delivery System Implanted:Qty : 1 on 05/22/2024 by Aura Muñiz MD at [facility] Right: Eye [employer] [id number] 06/10/2026 [id number] / [id number] / Tencis 1-Piece Iol Implanted:Qty : 1 on 06/14/2024 by Aura Muñiz MD at [facility] Left: Eye [employer] [id number] 11/24/2025 [id number] / [id number] / Insurance MEDICARE [employer] Advance Directives * Full Code (Latest Code Status on File) Date Activated Date Inactivated Comments 06/21/2022 4:56 PM 06/21/2022 10:03 PM Care Teams Recruiting Operations Consultant Relationship Specialty Start Date End Date Otto Salvador MD [address] [place] [address] PCP - General INTERNAL MEDICINE 06/21/22
== END 2025-01-13 17:25 | disposition home or self-care (01) ==
LOC: CHSED 17:17
PROVIDERS: Emergency Provider Emergency Medicine; PCP Internal Medicine
DX: B35.3 Tinea pedis (principal); L03.116 Cellulitis of left lower limb; Z85.46 Personal history of malignant neoplasm of prostate; Z87.891 Personal history of nicotine dependence
CPT/HCPCS: 99283

== ENCOUNTER 2025-05-15 00:17 | Day surgery (SDC) | payer MEDICARE, SELFPAY ==
--- OUTSIDE RECORDS SUMMARY | 2025-01-18 03:00 | XMS_ITS ---
Author Organization [facility] Address [address] [place], [place] [address] Care Team Providers Care Service Bar Cashier Name Role Phone FREDY STEVEN Unavailable [phone] Otto Salvador Unavailable Unavailable Allergies No Known Allergies REASON FOR VISIT Itching toe and fungal nails Medications Medication SIG (Take, Route, Fr equency, Duration) Notes Start Date End Date Status Cephalexin 250 MG 1 capsule Orally Once a day Active Clotrimazole 1 % 1 application Externally Twice a day; Duration: 30 days apply to rash of skin of feet twice a day. 1 tube 30 g or largest available 01/18/2025 07/16/2025 Active Mupirocin 2 % 1 application Veterans Service Officer ally Twice a day Active Social History Tobacco Use: Social History Observation Description Date Details (start date - stop date) Current Smoker NA - NA Tobacco Control (Standard) Question Answer Notes Tobacco use: Current every day smoker Vital Signs Height 72 in 01/18/2025 Weight 142 lbs 01/18/2025 BMI 19.26 kg/m2 01/18/2025 Height-cm 182.88 cm 01/18/2025 Weight-kg 64.41 kg 01/18/2025 Encounters Encounter Location Date Provider Diagnosis [facility] [address], [place] [id number] 01/18/2025 STEVEN DANIEL Tinea pedis B35.3 ; Cellulitis of left toe L03.032 ; Tinea unguium B35.1 ; Pain in left foot M79.672 and Localized edema R60.0 Assessments Encounter Date Diagnosis (ICD Code) Assessment Notes Treatment Notes Treatment Clinical Notes Section Notes 01/18/2025 Tinea pedis (ICD-10 - B35.3) 01/18/2025 Cellulitis of left toe (ICD-10 - L03.032) continue oral and topical antibiotic until next visit. Check and protect LE bilateral daily. Call if any changes or concerns. 01/18/2025 Tinea unguium (ICD-10 - B35.1) Aseptic debridement of elongated thickened nails x 10 using sterile nippers, nails were debrided in length and thickness by 30% utilizing a nail nipper without incident. The patient was told to keep feet dry and change socks. The patient was told to be careful with old shoes and excessive sweating. The patient will pursue topical clotrimazole prescription treatment, Rx sent. 01/18/2025 Pain in left foot (ICD-10 - M79.672) 01/18/2025 Localized edema (ICD-10 - R60.0) Advised patient on edema treatment recommendations. Recommendation for periodic elevation of feet and lower legs through the day. Recommend support compression hose. Recommend dietary restrictions salt intake. Followup with family physician for potential diuretic management if needed. Plan Of Treatment Medication Medication Name Sig Start Date Stop Date Notes Clotrimazole 1 % 1 application Veterans Service Officer ally Twice a day; Duration: 30 days 01/18/2025 07/16/2025 Treatment Notes Assessment Notes Cellulitis of left toe continue oral and topical antibiotic until next visit. Check and protect LE bilateral daily. Call if any changes or concerns. Tinea unguium Aseptic debridement of elongated thickened nails x 10 using sterile nippers, nails were debrided in length and thickness by 30% utilizing a nail nipper without incident. The patient was told to keep feet dry and change socks. The patient was told to be careful with old shoes and excessive sweating. The patient will pursue topical clotrimazole prescription treatment, Rx sent. Localized edema Advised patient on edema treatment recommendations. Recommendation for periodic elevation of feet and lower legs through the day. Recommend support compression hose. Recommend dietary restrictions salt intake. Followup with family physician for potential diuretic management if needed. Next Appt Details Provider Name:STEVEN TAVERA, 05/31/2025 08:40:00 AM, [address] [place] [address], [id number], Progress Notes * MARY ALVARADODOB: 0 (75 yo M)Acc No.[id number]:01/18/2025 Progress Notes Patient: MARY AVILES Provider: Betsy DANIEL :1950 A ge:74 Y S ex:Male Date:01/18/2025 Address:[address] [place], [place] [id number] Subjective: * Chief Complaints: * 1 . Itching toe and fungal nails. * HPI: H PI: New Complaint P atient presents for a new patient consultation., Patient complains of an issue to a sore on the left 3rd digit. Patient states that the toe started itching on Wednesday and then blistered. He went to the emergency room where they prescribed him a cream for the toe. He has been cleaning the toe and using the cream every day but putting the same bandage on that he received on Wednesday because he did not have any extra. The toe is red, and the skin is peeling. MA: [facility]. * ROS: G eneral / Constitutional: Patient denies f atigue, chills, fever, weakness. ? M usculoskeletal: Patient denies b roken ankle, broken foot bone. ? P eripheral Vascular: Patient complains of B sweta that popped and patient went to ER, rash noted, , painful extremities. P odiatric: Ankle swelling a dmits. S kin: Patient denies h mirian, ulcerations. P atient complains of b sweta burst. B listering of skin a dmits. D iscoloration a dmits skin and thick 1st nail. N eurologic: Patient denies b alance difficulty, loss of use of extremity. * Medical History: A rtificial joint, Cancer. * Surgical History: D enies Past Surgical History. * Hospitalization/Major Diagno stic Procedure: D enies Past Hospitalization. * Family History: N on-Contributory. * Social History: T obacco Use: T obacco Control (Standard) T obacco use: C urrent every day smoker. * Medications: T aking Mupirocin 2 % Ointment 1 application Externally Twice a day , Taking Cephalexin 250 MG Capsule 1 capsule Orally Once a day , Medication List reviewed and reconciled with the patient * Allergies: N .K.D.A. Objective: * Vitals: S hoe Size: 10.5, Wt:142lbs, Wt-k.41 kg, Ht: 72 in, Ht-cm: 182.88 cm, BMI:19.26Index, Body Surface Area: 1.81. * Examination: C onstitutional: Constitutional T he patient is awake, alert, well developed, well groomed and well nourished.. M usculoskeletal: Muscle Strength M uscle strength is 5/5 in regards to dorsiflexion, plantarflexion, inversion, and eversion in bilateral lower extremities.. ? N eurologic: Gross sensation G ross sensation is intact to light touch..? V ascular: Dorsalis pedis pulse: b ilateral, 1/4. Posterior tibial pulse: b ilaterally, 0/4. Edema: b ilateral, left > r ight, +1 p itting edema, diffuse, mild, to the level of ankle. no pain. calves loose and nontender.. ? D ermatologic: Skin findings: b ilateral, foot, Skin is thin, atrophic and lacking pedal hair., left, with mild interdigital maceration, caused by wearing bread bags over his feet to avoid ticks.. Nail pathology: l eft, digit 1, discolored, with onychomycosis a nd s ubungual debris. Ulcer: T here is a lysed blister p resent on left 3rd base of digit with healing skin noted, no active drainage. no heat. no malodor, no fluctuance. mild pain on palpation and ROM.. Assessment: * Assessment: 1. T inea pedis - B35.3 (Primary) 2 . C ellulitis of left toe - L03.032? 3. T inea unguium - B35.1 4 . P ain in left foot - M79.672? 5. L ocalized edema - R60.0 Plan: * Treatment: 2. C ellulitis of left toe Notes: continue oral and topical antibiotic until next visit. Check and protect LE bilateral daily. Call if any changes or concerns. 3. T inea unguium Notes: Aseptic debridement of elongated thickened nails x 10 using sterile nippers, nails were debrided in length and thickness by 30% utilizing a nail nipper without incident. The patient was told to keep feet dry and change socks. The patient was told to be careful with old shoes and excessive sweating. The patient will pursue topical clotrimazole prescription treatment, Rx sent. 4. L ocalized edema Notes: Advised patient on edema treatment recommendations. Recommendation for periodic elevation of feet and lower legs through the day. Recommend support compression hose. Recommend dietary restrictions salt intake. Followup with family physician for potential diuretic management if needed. * Immunizations: Immunization record has been reviewed and updated. * Preventive Medicine: Counseling: S moking: P atient counselled on the dangers of tobacco use and urged to quit. 0 01/18/2025. * Billing Information: * Visit Code: 81231 Office Visit, New Pt., Level 3. * Procedure Codes: * Electronic signature of AUGUSTA DANIEL DPM on 05/15/2025 at 12:19 AM CDT Sign off status: Pending * Provider: Betsy DANIEL Date: 0 01/18/2025 Generated for Raquel jones/Jose/Charmaine on: 0 05/15/2025 12:19 AM CDT History and Physical Notes * HPI (History of Present Illness) Category Sub-Category Detail Notes Category Not es HPI New Complaint Patient presents for a new patient consultation., Patient complains of an issue to a sore on the left 3rd digit. Patient states that the toe started itching on Wednesday and then blistered. He went to the emergency room where they prescribed him a cream for the toe. He has been cleaning the toe and using the cream every day but putting the same bandage on that he received on Wednesday because he did not have any extra. The toe is red, and the skin is peeling. MA: [facility] Examination Category Sub-Category Detail Notes Category Not es Constitutional Constitutional The patient is a wake, alert, well developed, well groomed and well nourished. Dermatologic Skin findings: bilateral, foot, Skin is thin, atrophic and lacking pedal hair., left, with mild interdigital maceration, caused by wearing bread bags over his feet to avoid ticks. Nail pathology: left, digit 1, disco lored, with onychomycosis and subungual debris Ulcer: There is a lysed bli ster present on left 3rd base of digit with healing skin noted, no active drainage. no heat. no malodor, no fluctuance. mild pain on palpation and ROM. Musculoskeletal Muscle Strength Muscle strength is 5/5 in regards to dorsiflexion, plantarflexion, inversion, and eversion in bilateral lower extremities. Neurologic Gross sensation Gross sensation is intact to light touch. Vascular Dorsalis pedis pulse: bilateral, 1/4 Posterior tibial pulse: bilaterally, 0/4 Edema: bilateral, left > ri ght, +1 pitting edema, diffuse, mild, to the level of ankle. no pain. calves loose and nontender.
--- OUTSIDE RECORDS SUMMARY | 2025-01-25 03:20 | XMS_ITS ---
Author Organization [facility] Address [address] [place], [place] [address] Care Team Providers Care Sheep Or Calf Grader Name Role Phone DANIELSTEVEN LAMAS Unavailable [phone] Otto Salvador Unavailable Unavailable Allergies No Known Allergies REASON FOR VISIT cellulitis check Medications Medication SIG (Take, Route, Fr equency, Duration) Notes Start Date End Date Status Mupirocin 2 % 1 application Slasher Tender Helper ally Twice a day Active Clotrimazole 1 % 1 application Externally Twice a day; Duration: 30 days apply to rash of skin of feet twice a day. 1 tube 30 g or largest available Active Cephalexin 250 MG 1 capsule Orally Once a day Active Vital Signs Height 72 in 01/25/2025 Weight 142 lbs 01/25/2025 BMI 19.26 kg/m2 01/25/2025 Height-cm 182.88 cm 01/25/2025 Weight-kg 64.41 kg 01/25/2025 Encounters Encounter Location Date Provider Diagnosis [address] [id number] 01/25/2025 STEVEN DANIEL Tinea pedis B35.3 ; Cellulitis of left toe L03.032 ; Tinea unguium B35.1 ; Pain in left foot M79.672 ; Localized edema R60.0 and Atherosclerosis of [place] arteries of extremities with intermittent claudication, bilateral legs I70.213 Assessments Encounter Date Diagnosis (ICD Code) Assessment Notes Treatment Notes Treatment Clinical Notes Section Notes 01/25/2025 Tinea pedis (ICD-10 - B35.3) 01/25/2025 Cellulitis of left toe (ICD-10 - L03.032) Healed wound no SOI. Check and protect LE bilateral daily. Call if any changes or concerns. 01/25/2025 Tinea unguium (ICD-10 - B35.1) Continue topical clotrimazole prescription treatment, Rx has refills 01/25/2025 Pain in left foot (ICD-10 - M79.672) 01/25/2025 Localized edema (ICD-10 - R60.0) Advised patient on edema treatment recommendations. Recommendation for periodic elevation of feet and lower legs through the day. Recommend support compression hose. Recommend dietary restrictions salt intake. Followup with family physician for potential diuretic management if needed. 01/25/2025 Atherosclerosis of [place] arteries of extremities with intermittent claudication, bilateral legs (ICD-10 - I70.213) Plan Of Treatment Medication Medication Name Sig Start Date Stop Date Notes Clotrimazole 1 % 1 application Slasher Tender Helper ally Twice a day; Duration: 30 days Treatment Notes Assessment Notes Cellulitis of left toe Healed wound no S OI. Check and protect LE bilateral daily. Call if any changes or concerns. Tinea unguium Continue topical marcos trimazole prescription treatment, Rx has refills Localized edema Advised patient on edema treatment recommendations. Recommendation for periodic elevation of feet and lower legs through the day. Recommend support compression hose. Recommend dietary restrictions salt intake. Followup with family physician for potential diuretic management if needed. Next Appt Details Follow Up: 3 Months, Reason: General Care Provider Name:STEVEN Jessica TAVERA, 05/31/2025 08:40:00 AM, [address] [place] [address], [id number], Progress Notes * MARY ALVARADODOB: 0 (75 yo M)Acc No.[id number]:01/25/2025 Patient: Richar KIMBERLYMARY PEGUERO Provider: Betsy DANIEL :1950 A ge:74 Y S ex:Male Date:01/25/2025 Address:[address] [place], [place] [id number] Subjective: * Chief Complaints: * 1 . Cellulitis check. * HPI: H PI: Follow Up Visit P atient presents for follow-up visit for toenail fungus and infection. Patient states that medications prescribed at his previous visit seem to be helping. MA LB. * ROS: G eneral / Constitutional: Patient [...] Medical History: A rtificial joint, Cancer. * Family History: N o Family History documented.. * Medications: T aking Clotrimazole 1 % Cream 1 application Externally Twice a day apply to rash of skin of feet twice a day. 1 tube 30 g or largest available, stop date 07/16/2025, Taking Mupirocin 2 % Ointment 1 application Externally [...] a nd s ubungual debris. Ulcer: T he previous blister on left 3rd base of digit has fully healed skin noted, no active drainage. no heat. no malodor, no fluctuance. no longer pain on palpation and ROM.. Assessment: * Assessment: 1. T inea pedis - B35.3 (Primary) 2 . C ellulitis of left toe - L03.032? 3. T inea unguium - B35.1 4 . P ain in left foot - M79.672? 5. L ocalized edema - R60.0 6 . A therosclerosis of [place] arteries of extremities with intermittent claudication, bilateral legs - I70.213 Plan: * Treatment: 2. C ellulitis of left toe Notes: Healed wound no SOI. Check and protect LE bilateral daily. Call if any changes or concerns.? 3. T inea unguium Notes: Continue topical clotrimazole prescription treatment, Rx has refills 4. L ocalized edema Notes: Advised patient on edema treatment recommendations. Recommendation for periodic elevation of feet and lower legs through the day. Recommend support compression hose. Recommend dietary restrictions salt intake. Followup with family physician for potential diuretic management if needed. * Immunizations: Immunization record has been reviewed and updated. * Follow Up: 3 Months (Reason: General Care) * Billing Information: * Visit Code: 16522 Office Visit, Est Pt., Level 3. * Procedure Codes: * Electronic signature of AUGUSTA DANIEL DPM on 05/15/2025 at 12:19 AM CDT Sign off status: Pending * Provider: Betsy DANIEL Date: 0 01/25/2025 Generated for Raquel jones/Jose/Gisselleitting on: 0 05/15/2025 12:19 AM CDT History and Physical Notes * HPI (History of Present Illness) Category Sub-Category Detail Notes Category Not es HPI Follow Up Visit Patient presents for follow-up visit for toenail fungus and infection. Patient states that medications prescribed at his previous visit seem to be helping. MA LB Examination Category Sub-Category Detail Notes Category Not [...] lored, with onychomycosis and subungual debris Ulcer: The previous blister on left 3rd base of digit has fully healed skin noted, no active drainage. no heat. no malodor, no fluctuance. no longer pain on palpation and ROM. Musculoskeletal Muscle [...]
--- OUTSIDE RECORDS SUMMARY | 2025-03-29 03:30 | XMS_ITS ---
Author Organization [facility] Address [address] [place], [place] [id number] Care Team Providers Care Housekeeper Caregiver Name Role Phone DANIELSTEVEN LAMAS Unavailable [phone] Otto Salvador Unavailable Unavailable Allergies No Known Allergies REASON FOR VISIT *General care Medications Medication SIG (Take, Route, Fr equency, Duration) Notes Start Date End Date Status Clotrimazole 1 % 1 application Externally Twice a day; Duration: 30 days apply to rash of skin of feet twice a day. 1 tube 30 g or largest available Active Mupirocin 2 % 1 application Patient Financial Services Manager ally Twice a day Active Cephalexin 250 MG 1 capsule Orally Once a day Active Vital Signs Height 72 in 03/29/2025 Weight 142 lbs 03/29/2025 BMI 19.26 kg/m2 03/29/2025 Height-cm 182.88 cm 03/29/2025 Weight-kg 64.41 kg 03/29/2025 Encounters Encounter Location Date Provider Diagnosis [address] [id number] 03/29/2025 STEVEN DANIEL Tinea pedis B35.3 ; Tinea unguium B35.1 ; Pain in left foot M79.672 ; Atherosclerosis of [place] arteries of extremities with intermittent claudication, bilateral legs I70.213 ; Cellulitis of left toe L03.032 and Localized edema R60.0 Assessments Encounter Date Diagnosis (ICD Code) Assessment Notes Treatment Notes Treatment Clinical Notes Section Notes 03/29/2025 Tinea pedis (ICD-10 - B35.3) 03/29/2025 Tinea unguium (ICD-10 - B35.1) Continue topical clotrimazole prescription treatment, Rx has refills 03/29/2025 Pain in left foot (ICD-10 - M79.672) 03/29/2025 Atherosclerosis of [place] arteries of extremities with intermittent claudication, bilateral legs (ICD-10 - I70.213) 03/29/2025 Cellulitis of left toe (ICD-10 - L03.032) Healed wound no SOI. Check and protect LE bilateral daily. Call if any changes or concerns. 03/29/2025 Localized edema (ICD-10 - R60.0) Advised patient on edema treatment recommendations. Recommendation for periodic elevation of feet and lower legs through the day. Recommend support compression hose. Recommend dietary restrictions salt intake. Followup with family physician for potential diuretic management if needed. Plan Of Treatment Medication Medication Name Sig Start Date Stop Date Notes Clotrimazole 1 % 1 application Patient Financial Services Manager ally Twice a day; Duration: 30 days Treatment Notes Assessment Notes Tinea unguium Continue topical marcos trimazole prescription treatment, Rx has refills Cellulitis of left toe Healed wound no S OI. Check and protect LE bilateral daily. Call if any changes or concerns. Localized edema Advised patient on edema treatment recommendations. Recommendation for periodic elevation of feet and lower legs through the day. Recommend support compression hose. Recommend dietary restrictions salt intake. Followup with family physician for potential diuretic management if needed. Next Appt Details Follow Up: 3 Months, Reason: General Care Provider Name:STEVEN TAVERA, 05/31/2025 08:40:00 AM, [address] [place] [address], [id number], Progress Notes * MARY ALVARADODOB: 0 (75 yo M)Acc No.[id number]:03/29/2025 Patient: MARY AVILES Provider: Betsy DANIEL :1950 A ge:75 Y S ex:Male Date:03/29/2025 Address:[address] [place], [place] [id number] Subjective: * Chief Complaints: * 1 . *General care. * HPI: H PI: General care P atient presents to the office for diabetic foot care. Patient states that their nails are thickened, elongated and painful. Patient states that it is aggravated by shoe gear. Onset is gradual., Patient denies taking blood thinners., Date last seen by Dr. Salvador was 01/2025., Initials nd. * ROS: G eneral / Constitutional: Patient [...] enies Past Hospitalization. * Family History: N o Family History documented.. * Medications: T aking Mupirocin 2 % Ointment 1 application Externally Twice a day , Taking Cephalexin 250 MG Capsule 1 capsule Orally Once a day , Taking Clotrimazole 1 % Cream 1 application Externally Twice a day apply to rash of skin of feet twice a day. 1 tube 30 g or largest available, Medication List reviewed and reconciled with the [...] inea pedis - B35.3 (Primary) 2 . T inea unguium - B35.1 ?3. P ain in left foot - M79.672 4 . A therosclerosis of [place] arteries of extremities with intermittent claudication, bilateral legs - I70.213 5 . C ellulitis of left toe - L03.032 6 . L ocalized edema - R60.0 Plan: * Treatment: 2. T inea unguium Notes: Continue topical clotrimazole prescription treatment, Rx has refills 3. C ellulitis of left toe Notes: Healed wound no SOI. Check and protect LE bilateral daily. Call if any changes or concerns.? 4. L ocalized edema Notes: Advised patient on edema treatment recommendations. Recommendation for periodic elevation of feet and lower legs through the day. Recommend support compression hose. Recommend dietary restrictions salt intake. Followup with family physician for potential diuretic management if needed. * Procedure Codes: 1 1056 TRIM SKIN LESIONS, 2 TO 4, Modifiers: Q8 , 08319 DEBRIDE NAIL, 6 OR MORE, Modifiers: 59 , Q8 * Follow Up: 3 Months (Reason: General Care) * Billing Information: * Visit Code: * Procedure Codes: 70046 TRIM SKIN LESIONS, 2 TO 4. Modifiers: Q8 87215 DEBRIDE NAIL, 6 OR MORE. Modifiers: 59, Q8 * Electronic signature of AUGUSTA DANIEL DPM on 05/15/2025 at 12:20 AM CDT Sign off status: Pending * Provider: Betsy DANIEL Date: 0 03/29/2025 Generated for Raquel jones/Jose/Charmaine on: 0 05/15/2025 12:20 AM CDT History and Physical Notes * HPI (History of Present Illness) Category Sub-Category Detail Notes Category Not es HPI General care Patient presents to the office for diabetic foot care. Patient states that their nails are thickened, elongated and painful. Patient states that it is aggravated by shoe gear. Onset is gradual., Patient denies taking blood thinners., Date last seen by Dr. Salvador was 01/2025., Initials nd Examination Category Sub-Category Detail Notes Category Not [...]
[2025-05-02 11:36] VITALS: BMI 19.1
--- OUTSIDE RECORDS SUMMARY | 2025-05-15 00:19 | XMS_ITS | Patient Health Record ---
Author Organization [facility] Address [address] [place], [place] [id number] Care Team Providers Care Dinkey Skinner Name Role Phone DANIEL, STEVEN Unavailable [phone] Otto Salvador Unavailable Unavailable Allergies No Known Allergies Reason For Referral No Information Medications Medication SIG (Take, Route, Fr equency, Duration) Notes Start Date End Date Status Clotrimazole 1 % 1 application Externally Twice a day; Duration: 30 days apply to rash of skin of feet twice a day. 1 tube 30 g or largest available Active Mupirocin 2 % 1 application Field Sampling Technician ally Twice a day Active Cephalexin 250 MG 1 capsule Orally Once a day Active Social History Tobacco Use: Social History Observation Description Date Details (start date - stop date) Current Smoker NA - NA Tobacco Control (Standard) Question Answer Notes Tobacco use: Current every day smoker Vital Signs Height-cm 182.88 cm 03/29/2025 Weight-kg 64.41 kg 03/29/2025 Height 72 in 03/29/2025 Weight 142 lbs 03/29/2025 BMI 19.26 kg/m2 03/29/2025 Encounters Encounter Location Date Provider Diagnosis [address] [id number] 01/18/2025 STEVEN DANIEL Tinea pedis B35.3 ; Cellulitis of left toe L03.032 ; Tinea unguium B35.1 ; Pain in left foot M79.672 and Localized edema R60.[address] [id number] 01/25/2025 STEVEN DANIEL Tinea pedis B35.3 ; Cellulitis of left toe L03.032 ; Tinea unguium B35.1 ; Pain in left foot M79.672 ; Localized edema R60.0 and Atherosclerosis of [place] arteries of extremities with intermittent claudication, bilateral legs I70.[address] [id number] 03/29/2025 STEVEN DANIEL Tinea pedis B35.3 ; Tinea unguium B35.1 ; Pain in left foot M79.672 ; Atherosclerosis of [place] arteries of extremities with intermittent claudication, bilateral [...] if any changes or concerns. 01/25/2025 Tinea pedis (ICD-10 - B35.3) 03/29/2025 Tinea unguium (ICD-10 - B35.1) Continue topical clotrimazole prescription treatment, Rx has refills 03/29/2025 Tinea pedis (ICD-10 - B35.3) 01/25/2025 Cellulitis of left toe (ICD-10 - L03.032) Healed wound no SOI. Check and protect LE bilateral daily. Call if any changes or concerns. 03/29/2025 Pain in left foot (ICD-10 - M79.672) 01/18/2025 Tinea unguium (ICD-10 - B35.1) Aseptic [...] pursue topical clotrimazole prescription treatment, Rx sent. 01/25/2025 Tinea unguium (ICD-10 - B35.1) Continue topical clotrimazole prescription treatment, Rx has refills 01/18/2025 Pain in left foot (ICD-10 - M79.672) 01/25/2025 Pain in left foot (ICD-10 - M79.672) 03/29/2025 Atherosclerosis of [place] arteries of extremities with intermittent claudication, bilateral legs (ICD-10 - I70.213) 03/29/2025 Cellulitis of left toe (ICD-10 - L03.032) Healed wound no SOI. Check and protect LE bilateral daily. Call if any changes or concerns. 01/25/2025 Localized edema (ICD-10 - R60.0) Advised patient on edema treatment recommendations. Recommendation for periodic elevation of feet and lower legs through the day. Recommend support compression hose. Recommend dietary restrictions salt intake. Followup with family physician for potential diuretic management if needed. 01/18/2025 Localized edema (ICD-10 - R60.0) Advised patient on edema treatment recommendations. Recommendation for periodic elevation of feet and lower legs through the day. Recommend support compression hose. Recommend dietary restrictions salt intake. Followup with family physician for potential diuretic management if needed. 01/25/2025 Atherosclerosis of [place] arteries of extremities with intermittent claudication, bilateral legs (ICD-10 - I70.213) 03/29/2025 Localized edema (ICD-10 - R60.0) Advised patient on edema treatment recommendations. Recommendation for periodic elevation of feet and lower legs through the day. Recommend support compression hose. Recommend dietary restrictions salt intake. Followup with family physician for potential diuretic management if needed. Plan Of Treatment Next Appt Details Provider Name:STEVEN TAVERA, 05/31/2025 08:40:00 AM, [address] [place] [address], [id number], Insurance Providers Payer Name Payer Address Payer Phone Subscriber Number Group Number Insured Name Patient Relationship to Insured Coverage Start Date Coverage End Date Medicare Part B [place] [address] [place] [phone] [id number] MARY ALVARADO Self - patient is the insured [facility] [address] [address] [place] [address] [phone] [id number] MARY ALVARADO Self - patient is the insured 05/01/202 2 Medical (General) History Medical History History ICD Code artificial joint Cancer
--- OUTSIDE RECORDS SUMMARY | 2025-05-15 00:20 | XMS_ITS | Clinical Summary ---
Author Organization [facility] Address [address] [place] [address] Care Team Providers Care Nursing Staff Development Coordinator Name Role Phone Otto Salvador MD Primary Care Provider [phone] Allergies No known active allergies Medications No [...] SCREENING 2015 Annual Medicare Wellness Visit 2015 RSV Immunization or 60+ Years (1 - 1-dose 75+ series) 2025 COVID-19 Vaccine (1 - 2023-2 5 season) 2025 Meningococcal B Vaccine Aged Out No l onger eligible based on patient's age to complete this topic Meningococcal Vaccine Aged Out No silver thea eligible based on patient's age to complete this topic RSV Immunizations Under 20 Months Aged Out No longer eligible based on patient's age to complete this topic Medical Devices Implanted Type Area Observation Nurse Device Identifier Shelf Expiration Date Model / Serial / Lot Tecnis Simplicity Delivery System Implanted:Qty : 1 on 05/22/2024 by Aura Muñiz MD at [facility] Right: Eye [employer] [id number] 06/10/2026 [id number] / [id number] / Tencis 1-Piece Iol Implanted:Qty : 1 on 06/14/2024 by Aura Muñiz MD at [facility] Left: Eye [employer] [id number] 11/24/2025 [id number] / [id number] / Insurance MEDICARE [employer] Advance Directives * Full Code (Latest Code Status on File) Date Activated Date Inactivated Comments 06/21/2022 4:56 PM 06/21/2022 10:03 PM Care Teams Nursing Staff Development Coordinator Relationship Specialty Start Date End Date Otto Salvador MD [address] [place] [address] PCP - General INTERNAL MEDICINE 06/21/22
--- OUTSIDE RECORDS SUMMARY | 2025-05-15 00:20 | XMS_ITS | Clinical Summary ---
Author Organization [place] [address] [facility] Address [address] [place] [address] Care Team Providers Care Green Marketing Analyst Name Role Phone Yue Ott MD, Markell Hill Unavailable Otto Salvador MD Primary Care Provider [phone] Allergies No known active allergies Medications acetaminophen [...] (08/15/2019): Added automatically from request for surgery [id number] Malignant neoplasm of prostate 06/19/2015 Cancer Staging:Clinical stage from 06/20/2015:Stage IIIB(cT3a, cN0, cM0, PSA: 8, Grade Group: 3) - Signed by Rafael Cook MD on 05/18/2019 Pathologic stage from 09/09/2015:Stage IIIB(pT3a, pN0, cM0, PSA: 8, Grade Group: 2) - Signed by Rafael Cook MD on 05/18/2019 Overview (12/10/2017): Description: Lap RRP 09/09/2015--[place]: 3+4=7--Margin: 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) (lisa: 3+4=7)--Stage: T3a/NO/MO Surgical History Surgery Date Site/Laterality Comments [place] UNLISTED PROCEDURE ABDOME N PERITONEUM & OMENTUM Hernia Repair - (Added by TW Conv) [place] LAP,PROSTATECTOMY,RADICAL,W/NER VE SPARE,INCL ROBOTIC Prostatect Retropubic Radical W/ Nerve Sparing Laparoscopic - 09/09/2015 (Added by TW Conv) [place] LAPS SURG BILATERAL TOTAL PELVIC LMPHADECTOMY Laparoscopy [...] Date Smoking Tobacco: Every Day Cigarettes 0.5 58.7 Started: 1966 Smokeless Tobacco: Never Comments:Quit 5 times over t he years and started back Alcohol Use Standard Drinks/Week Comments Yes 14 (1 standard drink = 0.6 oz pu re alcohol) Sex and Gender Information Value Date Recorded Sex Assigned at Not on file Legal Sex 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 Gender Identity Not on file Sexual Orientation Not on file Obstetrics History Last Filed Vital Signs Vital Sign Reading Time Taken Comments Blood Pressure 138/74 09/14/2019 6:45 AM MORTGAGE LOAN PROCESSING CLERK Pulse 82 09/14/2019 6:45 AM MORTGAGE LOAN PROCESSING CLERK Temperature 36.4 C (97.5 F) 09/14/2019 6:45 AM MORTGAGE LOAN PROCESSING CLERK Respiratory Rate 20 09/14/2019 5:34 AM MORTGAGE LOAN PROCESSING CLERK Oxygen Saturation 97% 09/14/2019 6:45 AM MORTGAGE LOAN PROCESSING CLERK Inhaled Oxygen Concentration - - Weight 63.5 kg (140 lb) 09/13/2019 9:10 AM MORTGAGE LOAN PROCESSING CLERK Height 182.9 cm (6') 09/13/2019 9:10 AM MORTGAGE LOAN PROCESSING CLERK Body Mass Index 18.99 09/13/2019 9:10 AM MORTGAGE LOAN PROCESSING CLERK Plan of Treatment Not on file Medical Devices Implanted Type Area Steel Spar Operator Device Identifier Shelf Expiration Date Model / Serial / Lot Jayme [employer] [id number] 25mm Reverse Shoulder Baseplate Glenoid Trabecular Metal - [id number] Implanted:Qty: 1 on 09/13/2019 by Eliseo Kovacs MD at [facility] Right: Shoulder [employer] [id number] 03/29/2029 [id number] / / [id number] [employer] [id number] 36mm Reverse Shoulder Sphere Glenoid Trabecular Metal - [id number] Implanted:Qty: 1 on 09/13/2019 by Eliseo Kovacs MD at [facility] Right: Shoulder [employer] [id number] 07/29/2029 [id number] / / [id number] [employer] 01.91030.042 Ncb Anatomical Shoulder 4.5mm 42mm Inverse Reverse Lock Self Tap - [id number] Implanted:Qty: 1 on 09/13/2019 by Eliseo Kovacs MD at [facility] Right: Shoulder [employer] [id number] 2 02/27/2024 [id number] / / [id number] [employer] 01.06283.042 Ncb Anatomical Shoulder 4.5mm 42mm Inverse Reverse Lock Self Tap - [id number] Implanted:Qty: 1 on 09/13/2019 by Eliseo Kovacs MD at [facility] Right: Shoulder [employer] [id number] 2 01/28/2024 [id number] / / [id number] [employer] [id number] 14mm 130mm Shoulder Stem Humeral Trabecular Metal Tivanium - [id number] Implanted:Qty: 1 on 09/13/2019 by Eliseo Kovacs MD at [facility] Right: Shoulder [employer] [id number] 13 02/26/2029 [id number] / / [id number] [employer] [id number] 36mm H+3mm Reverse Humerus 7d Standard Liner Shoulder Trabecular - [id number] Implanted:Qty: 1 on 09/13/2019 by Eliseo Kovacs MD at [facility] Right: Shoulder [employer] [id number] 05/29/2027 [id number] / / [id number] Insurance [facility]ICARE [facility] MEDICARE SUPPLEMENT INSURANCE MEDICARE [facility] MEDICARE SUPPLEMENT INSURANCE Advance Directives For more information, please contact: [phone] * Full Code (Latest Code Status on File) Date Activated Date Inactivated Comments 09/13/2019 12:50 PM 09/14/2019 7:05 PM Care Teams Green Marketing Analyst Relationship Specialty Start Date End Date Otto Salvador MD PCP - General Internal Medicine 08/15/19 Markell Turner Jr., MD Referring Physician Urology 05/18/19
[2025-05-15 10:07] VITALS: BP 133/77; PULSE 92; RESP 15; TEMP 36.6; O2SAT 98; BMI 18.0
[2025-05-15] MEDS: LACTATED RINGERS 1,000 ML 150 ML IV CONT (10:14)
--- NOTE | 2025-05-15 10:59 | WPDANESEPPF ---
Anes - Initial Pre Proc Eval Procedure: Operation Date: 05/15/25 11:00 Proposed Procedures p Screening Colonoscopy - Bishnu Tracy DO Date/Time: 05/15/25 10:59 Surgeon: Bishnu Tracy DO Pre Op Diagnosis: Neoplasm screening/+ [place] guard Test Patient Data Age: 75 Gender: M Height: 1.83 m Weight: 60.2 kg Last Vital Signs Temp 97.8 F 05/15/25 10:07 Pulse 92 05/15/25 10:07 Resp 15 05/15/25 10:07 BP 133/77 05/15/25 10:07 Pulse Ox 98 05/15/25 10:07 O2 Del Method Room Air 05/15/25 10:07 Allergies Allergy/AdvReac Type Severity Reaction Status Date / Time No Known Allergies Allergy Verified 05/15/25 10:06 Home Medications ?Medication ?Instructions ?Recorded ?Confirmed ?Type No Home Medications 05/15/25 05/15/25 History Patient hx anesthesia problems: none Family hx anesthesia problems: none Results Review: All pre-operative results and documents have been reviewed as part of the pre-operative evaluation. [facility] Past Medical History Medical History Prostate cancer Epistaxis Surgical History Surgical History Hx of inguinal hernia repair Laparoscopic recurrent bilateral inguinal hernia repair with mesh, da Kennedi assisted on 07/28/23 [facility] H/O shoulder replacement right H/O radical prostatectomy 2016 Family History Family History Other COPD (chronic obstructive pulmonary disease) Social History Social History Smoking packs per day: 1 Smoking cigarettes per day: 20.0 Years smoked: 40 Smoking pack-years: 40.00 Smoking status: Current every day smoker Tobacco type: cigarettes Smoking end date: 07/19/23 Alcohol intake: current Drinks per week: 25 Living arrangements: with family Spiritual care concerns: No Anes - Eval Final PreProcedure Day of Procedure 05/15/25 10:59 Patient weight: cachectic and thin Lungs: normal air movement Airway: Mallampati scale class II and special considerations (1 tooth on Lower R aspect. ) Neurological: alert and oriented Last oral intake: >/= 8 hours ASA classification: II Emergent: no Anesthetic plan: proceed Anesthesia type and monitoring: general GIVS and standard monitoring Results Review: All pre-operative results and documents have been reviewed as part of the pre-operative evaluation. 40 pack year smoker, pt reports ETOH 4 beer/night. Overall can walk short distances, no cp, mild dyspnea. Informed Consent: The patient's anesthetic plan and its attendant risks and benefits were discussed with the patient/family/POA. Questions were solicited and answers provided to the satisfaction of the patient/family/POA.
--- NOTE | 2025-05-15 11:11 | P.HP_ITS ---
H&P: HPI History of Present Illness Date/Time: 05/15/25 11:11 Chief Complaint: positive Cologuard test Narrative: this is a 75-year-old man who presents for colonoscopy. His last colonoscopy was 15 years ago. He recently had a Cologuard test which was positive. He denies any hematochezia or melena. He denies any family history of colon cancer. Review of Systems Review of Systems: All systems reviewed & are unremarkable except as noted in HPI and below Constitutional: Constitutional: Denies chills, Denies fever(s), Denies headache(s) and Denies weight loss Eyes: Eyes: Denies change in vision ENT: Denies dizziness, Denies headache(s), Denies neck mass and Denies throat swelling Cardiovascular: Cardiovascular: Denies chest pain, Denies lightheadedness and Denies dyspnea Respiratory: Respiratory: Denies cough, Denies dyspnea and Denies wheezing Gastrointestinal: Gastrointestinal: Denies abdominal pain, Denies change in bowel habits, Denies nausea and Denies vomiting Genitourinary: Genitourinary: Denies hematuria and Denies dysuria Musculoskeletal: Musculoskeletal: Reports as per HPI Integumentary/Breasts: Skin/Breast: Reports as per HPI Neurologic: Denies dizziness and Denies headache(s) Allergic/Immunologic: Allergic/Immunologic: Denies throat swelling and Denies wheezing PMF Past Medical History Medical History Prostate cancer Epistaxis Surgical History Surgical History Hx of inguinal hernia repair Laparoscopic recurrent bilateral inguinal hernia repair with mesh, da Kennedi assisted on 07/28/23 [facility] H/O shoulder replacement right H/O radical prostatectomy 2016 Family History Family History Other COPD (chronic obstructive pulmonary disease) Social History Social History Smoking packs per day: 1 Smoking cigarettes per day: 20.0 Years smoked: 40 Smoking pack-years: 40.00 Smoking status: Current every day smoker Tobacco type: cigarettes Smoking end date: 07/19/23 Alcohol intake: current Drinks per week: 25 Living arrangements: with family Spiritual care concerns: No Meds Home Medications and Allergies Home Medications ?Medication ?Instructions ?Recorded ?Confirmed ?Type No Home Medications 05/15/25 05/15/25 H istory Allergies Allergy/AdvReac Type Severity Reaction Status Date / Time No Known Allergies Allergy Verified 05/15/25 10:06 Vital Signs Vital Signs - 24 hr 05/15/25 10:07 Temperature 97.8 F Pulse Rate 92 Respiratory Rate 15 Blood Pressure 133/77 Pulse Oximetry 98 Oxygen Delivery Room Air Exam Const: General: no acute distress and alert Orientation/consciousness: patient oriented x3 HENMT: Head: normocephalic and atraumatic Ears: hearing grossly normal bilaterally Face/Nose/Sinus: Normal nares present Mouth: Yes Normal oral and palatal mucosa present Eyes: Periorbital: periorbital findings normal Sclera: sclerae normal EOM: EOMs intact bilaterally Neck: Neck: normal visual inspection, no lymphadenopathy and trachea midline Chest: Chest palpation & inspection: normal inspection of the chest Resp: Effort & Inspection: normal respiratory effort Auscultation: clear to auscultation bilaterally Cardio: Jugular venous distension: no JVD Rate: regular rate Rhythm: regular rhythm Heart sounds: S1 normal heart sound present and S2 normal heart sound present Peripheral pulses: Peripheral pulses 2+ throughout GI: Inspection: normal to inspection GI Palp: Yes Soft to palpation, No Tenderness to palpation present (GI), No Guarding due to palpation present (GI) and No Rebound tenderness present Percussion: Yes normal to percussion Auscultation: normal bowel sounds : General: Yes no CVA tenderness Back/Spine/Pelvis: Back: no CVA tenderness Neuro: General: patient oriented x3, no focal motor deficits and CN's II-XI intact bilaterally Cognition (Neuro): normal cognition Speech: normal speech Motor exam (neuro): 5/5 motor strength present throughout Extrem: General: capillary refill normal and no clubbing, cyanosis or edema Assessment and Plan Assessment and plan (1) Positive colorectal cancer screening using Cologuard test: Code(s): R19.5 - Other fecal abnormalities Status: Acute Assessment and Plan: I have recommended colonoscopy. I have discussed the procedure, risks, benefits, and alternatives. Questions were answered. Patient is agreeable to proceed.
--- NOTE | 2025-05-15 11:38 | S_PTH ---
PATIENT: Randolph Alvarado Sr. LOC: [facility]#:[id number] AGE/SX: 75/M ROOM: RE05/15/[address]: Bishnu Tracy DO : 1950 BED: DIS: 05/15/2025 SPEC #: [id number] RECD: 05/15/25 13:13 STATUS: MATHEW RE #: [id number] JEANINE: 05/15/25 11:[address]: Bishnu Tracy DEPT: [facility] Surgical RECD BY: Lelo Bolanos MLT, ([facility]) ENTERED: 05/15/25 13:14 SP TYPE: Surgical OTHR DR: Otto Salvador MD Tissues: A - Colon Polypectomy B - Colon Polypectomy C - Rectal Polyp Procedures: Hematoxylin and Eosin Stain Gross and Microscopic Level 4
[2025-05-15 11:44] VITALS: BP 96/64; PULSE 62; RESP 16; O2SAT 97
[2025-05-15 11:54] VITALS: BP 132/76; PULSE 69; RESP 21; O2SAT 100
[2025-05-15 12:04] VITALS: BP 132/80; PULSE 60; RESP 17; O2SAT 98
== END 2025-05-15 12:16 | disposition home or self-care (01) ==
PROVIDERS: PCP Internal Medicine; Visit Provider Surgery
PROC: 0DJD8ZZ Inspection of Lower Intestinal Tract, Via Natural or Artificial Opening Endoscopic (ICD-10-PCS; CPT 45378; principal; 2025-05-15 11:00)
DX: K57.30 Diverticulosis of large intestine without perforation or abscess without bleeding (principal); D12.3 Benign neoplasm of transverse colon; D12.5 Benign neoplasm of sigmoid colon; D12.8 Benign neoplasm of rectum; F17.210 Nicotine dependence, cigarettes, uncomplicated; Z98.890 Other specified postprocedural states; Z85.46 Personal history of malignant neoplasm of prostate
CPT/HCPCS: 45380; 45385; 88305; J2003; J2704; J7120